=== PATIENT | male | born 1950 | race Hispanic/Latino ===

== ENCOUNTER 2017-01-27 09:41 | Inpatient (IN) | payer MEDICARE, MEDICAID ==
[2017-01-27] MEDS ORDERED: Bacitracin 500 Units/gm Oint Foilpak UD TOP ONE (10:57)
[2017-01-27] MEDS ORDERED: Sodium Chloride 0.9% 1,000 ML IV STA (10:57)
--- NOTE | 2017-01-27 11:06 | ED PDOC ---
Arrival/HPI - General Historian: Patient - History of Present Illness Time/Duration: < week Symptom Onset: Sudden Symptom Course: Unchanged Quality: Burning Severity Level: 9 Activities at Onset: Rest Context: Home <Mercy Crow - Last Filed: 01/27/17 13:12> <Boaz Martins - Last Filed: 01/27/17 14:15> - General Chief Complaint: Weakness/Neurological Deficit Time Seen by Provider: 01/27/17 10:06 - History of Present Illness Narrative History of Present Illness (Text): 01/27/17 11:17 This is a 66Y M with PMH of HTN, possible cirrhosis and kidney stones who came to ED for AMS x 4 days. Patient was found on the floor by neighbors covered in feces and maggots. Patient reports that he has been having diarrhea the past week without blood or dark in color. It is very watery and does not wake him up in the night. He reports that he was dehydrated and woke up on the floor Tuesday morning. He was having people change the carpet in his home and woke up to the furniture all moved to a corner. He was unable to get up and yelled for help and claimed no one came to help him. Due to his diarrhea and inability to get up he was covered in feces and unable to take his underwear off. He was later found by neighbors this morning. The patient does not know how he ended up on the floor. He denies drug or alcohol use, seizure like activity, numbness/ tingling, facial droop, slurred speech, trauma, sick contacts or recent travel. Patient denies CP, SOB, n/v, numbness/tingling, fever, chills. He does admit to urinary frequency and felt as though he was getting a stone. He is a poor historian and is unable to describe his complete medical history. He does not know all the medications he takes. He lives alone. His PMD is Dr. Glez who is partners with Dr. Jon. (Mercy Crow) Past Medical History - Provider Review Nursing Documentation Reviewed: Yes - Travel History Have you recently traveled outside [place] w/in the past 3 mons?: No - Cardiac Hx Hypertension: Yes - Renal Hx Kidney Stones: Yes - Hematological/Oncological Hx Cirrhosis: Yes - Psychiatric Hx Substance Use: Yes (alcoholism quit >3yrs ago) - Past Surgical History Past Surgical History: No Previous <Mercy Crow - Last Filed: 01/27/17 13:12> Family/Social History - Physician Review Nursing Documentation Reviewed: Yes Family/Social History: Unknown Family HX Smoking Status: Former Smoker Hx Alcohol Use: Yes (used to be an alcoholic- quit ) Hx Substance Use: No <Mercy Crow - Last Filed: 01/27/17 13:12> Allergies/Home Meds <Mercy Crow - Last Filed: 01/27/17 13:12> <Boaz Martins - Last Filed: 01/27/17 14:15> Allergies/Adverse Reactions: Allergies No Known Allergies Allergy (Verified 01/27/17 10:42) Home Medications: Home Meds Medication Instructions Recorded Confirmed Unobtainable 01/27/17 01/27/17 Review of Systems - Physician Review All systems were reviewed & negative as marked: Yes - Review of Systems Constitutional: Fatigue Eyes: Normal. absent: Vision Changes ENT: Normal. absent: Hearing Changes Respiratory: Normal. absent: SOB, Cough, Sputum Cardiovascular: Normal. absent: Chest Pain, Palpitations, Edema Gastrointestinal: Diarrhea. absent: Nausea, Vomiting Genitourinary Male: Normal, Frequency Musculoskeletal: Normal. absent: Arthralgias, Back Pain, Neck Pain, Myalgias Skin: Rash, Skin Lesions Neurological: Normal. absent: Headache, Dizziness Endocrine: Normal. absent: Diaphoresis, Polyuria Hemo/Lymphatic: Normal. absent: Adenopathy Psychiatric: Normal. absent: Anxiety, Depression <Mercy Crow - Last Filed: 01/27/17 13:12> Physical Exam Vital Signs Reviewed: Yes Temperature: Afebrile Blood Pressure: Hypotensive Pulse: Tachycardic Respiratory Rate: Normal Appearance: Positive for: Non-Toxic, Comfortable, Unkept Pain Distress: None Mental Status: Positive for: Alert and Oriented X 3 - Systems Exam Head: Present: Normocephalic, Abrasion Pupils: Present: PERRL Extroacular Muscles: Present: EOMI Conjunctiva: Present: Normal Mouth: Present: Dry Neck: Present: Normal Range of Motion Respiratory/Chest: Present: Clear to Auscultation, Good Air Exchange. No: Respiratory Distress, Accessory Muscle Use Cardiovascular: Present: Regular Rate and Rhythm, Normal S1, S2. No: Murmurs Abdomen: Present: Tenderness, Normal Bowel Sounds. No: Distention, Peritoneal Signs, Rebound, Guarding, Hernias Genitourinary Male: Present: Normal External Genitalia, Lesions (bleeding and lesions ) Upper Extremity: Present: Normal Inspection. No: Cyanosis, Edema Lower Extremity: Present: Edema (trace). No: Normal Inspection Neurological: Present: GCS=15, CN II-XII Intact, Speech Normal, Motor Func Grossly Intact, Normal Sensory Function Skin: Present: Warm, Rashes, Erythematous, Abrasion, Other (multiple bug bites throughout body. Multliple wound on bilateral legs, toes and buttock, chest, groin region) Psychiatric: Present: Alert, Oriented x 3, Normal Concentration, Other ( confused at times ). No: Agitated, Depressed Mood <Mercy Crow - Last Filed: 01/27/17 13:12> Vital Signs Reviewed: Yes <Boaz Martins - Last Filed: 01/27/17 14:15> Vital Signs Temp Pulse Resp BP Pulse Ox 01/27/17 11:06 103 H 127/79 100 01/27/17 10:38 98.4 F 98 H 16 78/33 L 99 Medical Decision Making Re-evaluation Time: 12:00 Reassessment Condition: Improving,but remains with symptoms <Mercy Crow - Last Filed: 01/27/17 13:12> <Boaz Martins - Last Filed: 01/27/17 14:15> ED Course and Treatment: 01/27/17 11:25 Impression: This is a 66Y M with PMH of HTN, possible cirrhosis and kidney stones who came to ED for AMS x 4 days. Differential Diagnosis included but are not limited to: rhabdomyolysis vs. CVA vs. dehydration vs. cellulitis Plan: -- Head CT -- CT Abd/pelvis -- NS bolus -- Cleocin, Bacitracin -- EKG -- CBC, CMP, drug tox, alcohol level, CK, cardiac iso, ammonia level -- Reassess and disposition 01/27/17 11:27 EKG: Ordered, reviewed, and independently interpreted the EKG. Rate : 107 BPM Rhythm : Sinus tachycardia Interpretation : No ST-segment elevations or depressions, no T-wave inversions, normal intervals. Comparison : No previous comparison 01/27/17 12:30 Progress Note: Patient reports he has improved and feels more hydrated. Labs were reviewed. CMP showed Hypernatremia, elevated CK and increased BUN and Cr. PMD, Dr. Jon called. Awaiting call back. 01/27/17 12:[address] Jon who accepted the patient into his service. He requests the patient be placed on med/surg. Discussed results and plan to admit with patient who expresses understanding. All questions answered and there is agreement with the plan. CT HEAD WITHOUT CONTRAST. COMPARISON: None available. FINDINGS: HEMORRHAGE: No intracranial hemorrhage. BRAIN: No mass effect or edema. Mild chronic microvascular changes and mild atrophy are seen. No acute intracranial findings VENTRICLES: Unremarkable. No hydrocephalus. CALVARIUM: Unremarkable. PARANASAL SINUSES: Unremarkable as visualized. No significant inflammatory changes. MASTOID AIR CELLS: Unremarkable as visualized. No inflammatory changes. OTHER FINDINGS: None. IMPRESSION: No acute intracranial findings CT Abdomen and Pelvis without intravenous contrast COMPARISON: None. FINDINGS: LOWER THORAX: Unremarkable. LIVER: There is an irregular contour of the liver and mild liver atrophy consistent with cirrhosis. The liver measures 22.5 cm transversely. There is evidence of portal hypertension. There is some associated enlargement of the umbilical vein. Multiple splenic varices are seen. GALLBLADDER AND BILE DUCTS: Unremarkable. PANCREAS: Unremarkable. No gross lesion or ductal dilatation. SPLEEN: Splenic varices. The spleen is otherwise normal in size ADRENALS: Unremarkable. No mass. KIDNEYS AND URETERS: Unremarkable. No hydronephrosis. No solid mass. VASCULATURE: Unremarkable. No aortic aneurysm. BOWEL: Unremarkable. No obstruction. No gross mural thickening. APPENDIX: Unremarkable. Normal appendix. PERITONEUM: Unremarkable. No free fluid. No free air. LYMPH NODES: Unremarkable. No enlarged lymph nodes. BLADDER: Unremarkable. REPRODUCTIVE: Unremarkable. BONES: No acute fracture. OTHER FINDINGS: None. IMPRESSION: There is an irregular contour of the liver and mild liver atrophy consistent with cirrhosis. There is evidence of portal hypertension. There is some associated enlargement of the umbilical vein. Multiple splenic varices are seen. 01/27/17 13:07 (Mercy Crow) 01/27/17 13:11 Patient Seen With Resident: In agreement with resident note which contains more details about the patient. Patient was seen and evaluated with resident. Came up with plan and treatment together. 66 y/o M p/w fall at home, abrasions to groin area. (Imm,Boaz Larsen) - Lab Interpretations Lab Results: 01/27/17 11:30 01/27/17 11:30 Lab Results 01/27/17 12:00: Ammonia 26 01/27/17 11:30: Alcohol, Quantitative < 10 01/27/17 11:30: Sodium 172 H*, Potassium 4.5, Chloride 126 H, Carbon Dioxide 17 L, Anion Gap 34 H, BUN 171 H*, Creatinine 4.0 H, Est GFR ( Amer) 18, Est GFR (Non-Af Amer) 15, Random Glucose 134 H, Calcium 9.6, Total Bilirubin 4.8 H, AST 148 H, ALT 92 H, Alkaline Phosphatase 86, Lactate Dehydrogenase 1172 H, Total Creatine Kinase 657 H, CK-MB (CK-2) 10.7 H, CK-MB (CK-2) % 1.6 L, Troponin I 0.25 H*, Total Protein 7.4, Albumin 4.0, Globulin 3.4, Albumin/ Globulin Ratio 1.2 01/27/17 11:30: WBC 6.4, RBC 4.89, Hgb 16.5, Hct 49.3, MCV 100.8, MCH 33.7, MCHC 33.5, RDW 16.0 H, Plt Count 85 L, MPV 10.8, Gran % 73.1 H, Lymph % (Auto) 9.5 L, Twiggs % (Auto) 15.3 H, Eos % (Auto) 1.6, Baso % (Auto) 0.5, Gran # 4.69, Lymph # 0.6 L, Twiggs # 1.0 H, Eos # 0.1, Baso # 0.03 - RAD Interpretation Radiology Orders: 01/27/17 10:57 HEAD W/O CONTRAST [CT] Stat 01/27/17 11:07 ABD & PELVIS W/O PO OR IV CONT [CT] Stat - Medication Orders Current Medication Orders: Dextrose (Dextrose 5% In Water 1000 Ml) 1,000 mls @ 150 mls/hr IV .Q6H40M KELLEY Last Admin: 01/27/17 13:17 Dose: 150 mls/hr Discontinued Medications Bacitracin (Bacitracin) 1 ea TOP ONCE ONE Stop: 01/27/17 10:58 Last Admin: 01/27/17 11:27 Dose: 1 ea Clindamycin Phosphate 900 mg/ (Sodium Chloride) 106 mls @ 106 mls/hr IVPB STAT STA PRN Reason: Protocol Stop: 01/27/17 11:56 Last Admin: 01/27/17 11:27 Dose: 106 mls/hr Sodium Chloride (Sodium Chloride 0.9%) 1,000 mls @ 999 mls/hr IV .Q1H1M STA Stop: 01/27/17 11:57 Last Admin: 01/27/17 11:17 Dose: 999 mls/hr <Mercy Crow - Last Filed: 01/27/17 13:12> - Scribe Statement The provider has reviewed the documentation as recorded by the Scribe <Boaz Martins - Last Filed: 01/27/17 14:15> - Scribe Statement Gertrudis Gomez Provider Scribe Attestation: All medical record entries made by the Scribe were at my direction and personally dictated by me. I have reviewed the chart and agree that the record accurately reflects my personal performance of the history, physical exam, medical decision making, and the department course for this patient. I have also personally directed, reviewed, and agree with the discharge instructions and disposition. (Boaz Martins) Disposition/Present on Arrival - Present on Arrival Any Indicators Present on Arrival: No History of DVT/PE: No History of Uncontrolled Diabetes: No Urinary Catheter: No History of Decub. Ulcer: No History Surgical Site Infection Following: None - Disposition Have Diagnosis and Disposition been Completed?: Yes Disposition Time: 12:55 Patient Plan: Admission <Mercy Crow - Last Filed: 01/27/17 13:12> <Boaz Martins - Last Filed: 01/27/17 14:15> - Disposition Diagnosis: Dehydration Disposition: HOSPITALIZED Patient Problems: Current Active Problems Problem Status Onset Dehydration Acute Condition: STABLE
[2017-01-27 11:49] LABS: BASO # 0.03 K/mm3 (0.0-2.0); BASO % 0.5 % (0.0-3.0); EOS # 0.1 (0.0-0.7); EOS % 1.6 % (1.5-5.0); GRAN # 4.69 (1.4-6.5); GRAN % 73.1 % (50.0-68.0); HEMATOCRIT 49.3 % (42.0-52.0); LYMPH # 0.6 (1.2-3.4); LYMPH % 9.5 % (22.0-35.0); MEAN CELL VOLUME 100.8 fl (80.0-105.0); MEAN CORPUSCULAR HEMOGLOBIN 33.7 pg (25.0-35.0); MEAN CORPUSCULAR HGB CONC 33.5 g/dl (31.0-37.0); MEAN PLATELET VOLUME 10.8 fl (7.0-11.0); MONO % 15.3 % (1.0-6.0); WHITE BLOOD COUNT 6.4 10^3/ul (4.5-11.0)
[2017-01-27 12:08] LABS: ALB/GLOB RATIO 1.2 (1.1-1.8); BILIRUBIN,TOTAL 4.8 mg/dL (0.2-1.3); CALCIUM 9.6 mg/dL (8.4-10.5); TOTAL PROTEIN 7.4 g/dL (5.8-8.3)
[2017-01-27 12:18] LABS: POTASSIUM 4.5 mmol/L (3.6-5.0)
--- NOTE | 2017-01-27 12:19 | CT ---
PROCEDURE: CT HEAD WITHOUT CONTRAST. HISTORY: ams, fall COMPARISON: None available. TECHNIQUE: Axial computed tomography images were obtained through the head/brain without intravenous contrast. Radiation dose: Total exam DLP = 903 mGy-cm. This CT exam was performed using one or more of the following dose reduction techniques: Automated exposure control, adjustment of the mA and/or kV according to patient size, and/or use of iterative reconstruction technique. FINDINGS: HEMORRHAGE: No intracranial hemorrhage. BRAIN: No mass effect or edema. Mild chronic microvascular changes and mild atrophy are seen. No acute intracranial findings VENTRICLES: Unremarkable. No hydrocephalus. CALVARIUM: Unremarkable. PARANASAL SINUSES: Unremarkable as visualized. No significant inflammatory changes. MASTOID AIR CELLS: Unremarkable as visualized. No inflammatory changes. OTHER FINDINGS: None. IMPRESSION: No acute intracranial findings
[2017-01-27 12:22] LABS: TROPONIN I 0.25 ng/mL
--- NOTE | 2017-01-27 12:28 | CT ---
PROCEDURE: CT Abdomen and Pelvis without intravenous contrast HISTORY: diarrhea, kidney stone, hx of cirrhosis? COMPARISON: None. TECHNIQUE: Without contrast.. Contrast Dose: Radiation dose: Total exam DLP = 1043 mGy-cm. This CT exam was performed using one or more of the following dose reduction techniques: Automated exposure control, adjustment of the mA and/or kV according to patient size, and/or use of iterative reconstruction technique. FINDINGS: LOWER THORAX: Unremarkable. LIVER: There is an irregular contour of the liver and mild liver atrophy consistent with cirrhosis. The liver measures 22.5 cm transversely. There is evidence of portal hypertension. There is some associated enlargement of the umbilical vein. Multiple splenic varices are seen. GALLBLADDER AND BILE DUCTS: Unremarkable. PANCREAS: Unremarkable. No gross lesion or ductal dilatation. SPLEEN: Splenic varices. The spleen is otherwise normal in size ADRENALS: Unremarkable. No mass. KIDNEYS AND URETERS: Unremarkable. No hydronephrosis. No solid mass. VASCULATURE: Unremarkable. No aortic aneurysm. BOWEL: Unremarkable. No obstruction. No gross mural thickening. APPENDIX: Unremarkable. Normal appendix. PERITONEUM: Unremarkable. No free fluid. No free air. LYMPH NODES: Unremarkable. No enlarged lymph nodes. BLADDER: Unremarkable. REPRODUCTIVE: Unremarkable. BONES: No acute fracture. OTHER FINDINGS: None. IMPRESSION: There is an irregular contour of the liver and mild liver atrophy consistent with cirrhosis. There is evidence of portal hypertension. There is some associated enlargement of the umbilical vein. Multiple splenic varices are seen.
[2017-01-27] MEDS: Morphine 4 mg/ml ISec IVP PRN (16:18)
[2017-01-27] MEDS ORDERED: Permethrin 5% Cream(60 gm) TOP ONE ×2 (16:46→18:16)
[2017-01-27 17:22] VITALS: BMI 30.2
[2017-01-27 17:26] LABS: URINE BILIRUBIN SMALL (NEGATIVE); URINE BLOOD NEGATIVE (NEGATIVE); URINE GLUCOSE (UA) NEGATIVE (NEGATIVE); URINE KETONE TRACE mg/dL (NEGATIVE); URINE LEUKOCYTE ESTERASE MODERATE Leu/uL (NEGATIVE); URINE PROTEIN TRACE mg/dL (<30 mg/dL)
[2017-01-27 17:38] LABS: URINE COLOR DARK YELLOW (YELLOW)
[2017-01-27 17:39] LABS: URINE APPEARANCE CLOUDY (CLEAR)
[2017-01-27 17:40] LABS: URINE BACTERIA MANY (NEG); URINE EPITHELIAL CELLS 0 - 2 /hpf (0-5); URINE RBC 0 - 2 /hpf (0-2)
--- NOTE | 2017-01-27 17:40 | CP.PCM.CON ---
History of Present Illness - History of Present Illness History of Present Illness: SURGERY CONSULT FOR DR. VALLE 66M presents for altered mental status s/p fall 3 days ago. He does not remember the fall or how he got to the hospital. Patient states he lives alone at home and sometimes finds himself on the floor with missing items in his apartment. He states there are a lot of glass shards on his carpet and when he finds himself on the floor, he has to drag himself to the bathroom if he is able to conjure up the energy. He states he has not been able to eat for 5 days because he hasn't had enough energy to get up from the floor. Came to hospital via ambulance but does not know who called ambulance. Surgery consulted for wound care. Patient states wound developed from crawling all over glass floor. PMH: cirrhosis, hypertension PSH: finger surgery All: NKDA Social: history of alcohol abuse, denies tobacco and illicit drugs Past Patient History - Past Social History Smoking Status: Former Smoker - CARDIAC Hx Hypertension: Yes Hx Peripheral Edema: Yes (+3 pitting edema) - RENAL Hx Kidney Stones: Yes - HEMATOLOGICAL/ONCOLOGICAL Hx Cirrhosis: Yes - INTEGUMENTARY Other/Comment: multiple purple skin discolorations r arm,ble discolored, left restoration abrasion,necrotic uneven wound mid alfa surrounded by red skin, abd severely red and excoriated, ulcerated, greenish slough over excoriated skin across abd, red rash red excoriated skin across abd, to b/l groin and upper thighs, sacrum and buttock ulcerated and bright red, necrotic 6 cm x 4cm necrotic wound right knee, red wound 2cm x 2cm right knee, necrotic wounds to both feet, 2.5cm x 1cm necrotic wound top of ft between 1st and 2nd toe, necrotic wound 3cm x 2.5cm yellow slough necrosis and deep red color uneven below breat toe, left foot 1.5cm x 1cm necrotic wound top of ft at 3rd toe and necrotic wound top of ft at 2nd toe 1cm x 1cm, multiple areas of red raw excoriated skin over body and multiple, red raised rash over multiple body sites - MUSCULOSKELETAL/RHEUMATOLOGICAL Hx Falls: Yes (found on floor) Hx Unsteady Gait: Yes (cane) - GENITOURINARY/GYNECOLOGICAL Hx Genitourinary Disorders: Yes (frequency) - PSYCHIATRIC Hx Anxiety: Yes Hx Depression: Yes Hx Substance Use: No - SURGICAL HISTORY Hx Surgeries: Yes (left hand 3rd finger tendon repair as a child) Meds Allergies/Adverse Reactions: Allergies Allergy/AdvReac Type Severity Reaction Status Date / Time No Known Allergies Allergy Verified 01/27/17 10:42 - Medications Medications: Current Medications Clonazepam (Klonopin) 0.5 mg PO BID KELLEY PRN Reason: Protocol Dextrose (Dextrose 5% In Water 1000 Ml) 1,000 mls @ 150 mls/hr IV .Q6H40M KELLEY Last Admin: 01/27/17 13:17 Dose: 150 mls/hr Piperacillin Sod/Tazobactam Sod (Zosyn 2.25 Gm In 0.9% 100 Ml) 2.25 gm in 100 mls @ 100 mls/hr IVPB Q8 KELLEY PRN Reason: Protocol Stop: 02/05/17 16:25 Metronidazole (Flagyl) 500 mg PO Q8 KELLEY PRN Reason: Protocol Last Admin: 01/27/17 16:19 Dose: 500 mg Morphine Sulfate (Morphine) 4 mg IVP Q4H PRN PRN Reason: Pain, severe (8-10) Last Admin: 01/27/17 16:18 Dose: 4 mg Physical Exam - Constitutional Appears: Unkempt - Eye Exam Eye Exam: EOMI, PERRL - ENT Exam ENT Exam: Mucous Membranes Dry - Respiratory Exam Respiratory Exam: Clear to Auscultation Bilateral, NORMAL BREATHING PATTERN - Cardiovascular Exam Cardiovascular Exam: REGULAR RHYTHM, +S1, +S2 Additional comments: 6x6 necrotic region inferior to left breast - GI/Abdominal Exam GI & Abdominal Exam: Soft, Tenderness (from raw wounds on lower abdomen). absent: Distended, Firm, Guarding, Rebound, Rigid - Extremities Exam Extremities exam: Negative for: pedal edema, tenderness Additional comments: 2 3x3 necrotic regions on right foot 1 5x5 region surrounded by raw wounds in right medial knee region 2 necrotic regions on left lower extremity raw bloody wounds on penis, scrotum, bilateral inner thighs, suprapubic region, and lower abdomen - Neurological Exam Neurological exam: Alert - Psychiatric Exam Psychiatric exam: Anxious - Skin Skin Exam: Warm Results - Vital Signs Recent Vital Signs: Last Vital Signs Temp 98.4 F 01/27/17 16:45 Pulse 103 H 01/27/17 16:45 Resp 18 01/27/17 16:45 BP 127/79 01/27/17 16:45 Pulse Ox 98 01/27/17 14:54 - Labs Result Diagrams: 01/27/17 11:30 01/27/17 11:30 Assessment & Plan - Assessment and Plan (Free Text) Assessment: 66M with history of alcohol liver cirrhosis presents with multiple wounds on chest, groin, lower extremity regions. Plan: -Santyl to necrotic regions with 4x4 tape -Xeroform, 4x4 for groin region -reassess wounds in AM further recs discuss w/ Dr. Arjun Perez, PGY2
[2017-01-27] MEDS: Piperacillin/Tazobact 2.25gm 2.25 GM/100 ML BAG IVPB SCH ×2 (18:10→22:56)
[2017-01-27] MEDS: Collagenase 250 Units/gm Ointment(30 gm) TOP SCH (18:38)
--- NOTE | 2017-01-28 01:00 | CON ---
DATE: 01/27/2017 LOCATION: The patient was seen in room 578, bed 1. CHIEF COMPLAINT: Weakness times several days. HISTORY OF PRESENT ILLNESS: This is a 66-year-old male with a history of alcohol abuse, history of portal hypertension, splenic varices, cirrhosis, kidney stones, and systemic hypertension who was admitted from the emergency room, change in mental status of 4 days' duration. The patient was found on the floor by a neighbor. The patient was covered with feces and maggots and he has been having diarrhea and at this point, the patient is awake, also slow to respond. The patient states he has no pain, no chest pain, no abdominal pain, no headaches or blurred vision, and no dysuria or frequency. He has had no fevers or chills. PAST MEDICAL HISTORY: Significant for alcoholism, portal hypertension, cirrhosis, splenic varices, kidney stones, and hypertension. PAST SURGICAL HISTORY: Noncontributory. ALLERGIES: THE PATIENT HAS NO KNOWN ALLERGIES. MEDICATIONS: Medications at home include the patient to have Zoloft, Aldactone, Ambien, and metoprolol. PHYSICAL EXAMINATION: VITAL SIGNS: The patient is in bed with a temperature of 98, blood pressure is 78/33, heart rate of 103, respiratory rate of 17, and the patient is saturating 99% on room air. HEENT: Unremarkable. NECK: Supple. LUNGS: Decreased breath sounds. HEART: Normal S1 and S2. ABDOMEN: Soft. It is obvious that the patient had been on his abdomen for several days. He has ecchymotic lesions and he has got a right leg erythema and cellulitis. He has necrotic area in the center of his abdomen and his chest where he has been lying on and he has had several necrotic lesions on his legs and his feet and significant skin breakdown. LABORATORY DATA: Reveals a white count of 6.4, MCV is 100.8, platelets of 85, and hemoglobin of 16.5. Sodium is 172, potassium is 4.5, BUN 171, and creatinine is 4. Bilirubin is elevated at 4.8, AST is 148, ALT is 92. LDH is 1172. Toxicology, his alcohol level is less than 10. Microbiology is pending. The patient had a CAT scan of the abdomen and pelvis, which revealed an irregular contour of the liver consistent with cirrhosis. There is evidence of portal hypertension. There is some enlargement of umbilical vein, multiple splenic varices. The patient also had a CAT scan of the head, which shows no acute findings. ASSESSMENT AND PLAN: This is a 66-year-old male with alcoholism, portal hypertension, cirrhosis, splenic varices, kidney stones, systemic hypertension who has a blood pressure of 78/30, heart rate of 103, and erythema of the right leg. 1. Right leg cellulitis with dehydration and with acute kidney injury with a BUN of 171, creatinine of 4.0, and elevated glucose. The patient also has elevated troponin consistent with non-ST elevation myocardial infarction with nonspecific findings on EKG. 2. Rhabdomyolysis and hypotension. We will treat the patient with Zosyn at this time and we will order blood cultures, urine cultures, and skin cultures, stool for Clostridium difficile, stool cultures, HIV, RPR, hepatitis profile, and hemoglobin A1c. I will make further recommendations upon the availability of initial results. We will follow closely with you. Nithin Cruz MD
[2017-01-28] MEDS: Piperacillin/Tazobact 2.25gm 2.25 GM/100 ML BAG IVPB SCH ×3 (05:59→22:43)
[2017-01-28 07:01] LABS: HEMATOCRIT 41.6 % (42.0-52.0); MEAN CELL VOLUME 100.7 fl (80.0-105.0); MEAN CORPUSCULAR HEMOGLOBIN 33.2 pg (25.0-35.0); MEAN CORPUSCULAR HGB CONC 32.9 g/dl (31.0-37.0); MEAN PLATELET VOLUME 10.8 fl (7.0-11.0); RED CELL DISTRIBUTION WIDTH 15.9 % (11.5-14.5)
[2017-01-28 07:27] LABS: BILIRUBIN,TOTAL 3.7 mg/dL (0.2-1.3); CALCIUM 8.2 mg/dL (8.4-10.5); MAGNESIUM 2.8 mg/dL (1.7-2.2); PHOSPHOROUS 5.8 mg/dL (2.5-4.5); POTASSIUM 3.6 mmol/L (3.6-5.0)
[2017-01-28] MEDS: Morphine 4 mg/ml ISec IVP PRN (10:17)
--- NOTE | 2017-01-28 10:24 | CP.PCM.PN ---
Subjective - Date & Time of Evaluation Date of Evaluation: 01/28/17 Time of Evaluation: 10:21 - Subjective Subjective: General Surgery Progress note for Dr. Díaz Objective - Vital Signs/Intake and Output Vital Signs (last 24 hours): Temp Pulse Resp BP Pulse Ox 97.3 F L 75 20 132/84 97 01/28/17 07:54 01/28/17 07:54 01/28/17 07:54 01/28/17 07:54 01/28/17 07:54 Intake and Output: 01/28/17 01/28/17 06:59 18:59 Intake Total 3490 Output Total 725 Balance 2765 - Medications Medications: Current Medications Clonazepam (Klonopin) 0.5 mg PO BID KELLEY PRN Reason: Protocol Last Admin: 01/28/17 09:45 Dose: 0.5 mg Collagenase (Santyl) 1 gm TOP DAILY KELLEY Last Admin: 01/27/17 18:38 Dose: Not Given Piperacillin Sod/Tazobactam Sod (Zosyn 2.25 Gm In 0.9% 100 Ml) 2.25 gm in 100 mls @ 100 mls/hr IVPB Q8 KELLEY PRN Reason: Protocol Stop: 02/05/17 16:25 Last Admin: 01/28/17 05:59 Dose: 100 mls/hr Dextrose (Dextrose 5% In Water 1000 Ml) 1,000 mls @ 100 mls/hr IV .Q10H KELLEY Metronidazole (Flagyl) 500 mg PO Q8 KELLEY PRN Reason: Protocol Last Admin: 01/28/17 05:58 Dose: 500 mg Morphine Sulfate (Morphine) 4 mg IVP Q4H PRN PRN Reason: Pain, severe (8-10) Last Admin: 01/28/17 10:17 Dose: 4 mg - Labs Labs: 01/28/17 06:30 01/28/17 06:30 - Constitutional Appears: Unkempt - Head Exam Head Exam: absent: ATRAUMATIC Additional comments: wound on left scalp - Eye Exam Eye Exam: EOMI - ENT Exam ENT Exam: Mucous Membranes Moist. absent: Mucous Membranes Dry - Neck Exam Neck Exam: Full ROM - Respiratory Exam Respiratory Exam: NORMAL BREATHING PATTERN. absent: Accessory Muscle Use, Respiratory Distress - Cardiovascular Exam Cardiovascular Exam: REGULAR RHYTHM. absent: Bradycardia, Tachycardia - GI/Abdominal Exam GI & Abdominal Exam: Soft, Tenderness Additional comments: left lower abdomen wound 2x2cm at the fold - Extremities Exam Extremities Exam: Full ROM, Normal Inspection. absent: Calf Tenderness, Pedal Edema - Neurological Exam Neurological Exam: Alert, Awake - Psychiatric Exam Psychiatric exam: Normal Affect, Normal Mood - Skin Skin Exam: Abrasion, Warm. absent: Intact Additional comments: 2 3x3 necrotic regions on right foot, right 1st digit. and on two digits of left foot 1 5x5 region surrounded by raw wounds in right medial knee region 2 necrotic regions on left lower extremity 1 necrotic region on left medial chest raw bloody wounds on penis, scrotum, bilateral inner thighs, suprapubic region, and lower abdomen Assessment and Plan - Assessment and Plan (Free Text) Assessment: 66M with history of alcohol liver cirrhosis presents with multiple wounds on chest, groin, lower extremity regions. Plan: -consider scorring with Santyl to necrotic regions with 4x4 tape -Xeroform, 4x4 for groin region -reassess wounds in AM d/w Dr. Arjun Doss, DO PGY1
[2017-01-28] MEDS: Collagenase 250 Units/gm Ointment(30 gm) TOP SCH (11:00)
--- NOTE | 2017-01-28 11:31 | PN ---
DATE: 01/28/2017 SUBJECTIVE: The patient is in bed, seen early this morning. No fever. No chills. Much better this morning. PHYSICAL EXAMINATION: VITAL SIGNS: Temperature is 98, blood pressure is 120/70, respiratory rate of 20, and heart rate of 103. HEENT: Unremarkable. NECK: Supple. LUNGS: Decreased breath sounds. HEART: Normal S1 and S2. ABDOMEN: Soft and nontender. No rebound. No guarding. LABORATORY DATA: White count is 6, hemoglobin is down to 13, and platelets of 47. Chemistries reveals a creatinine is down to 3.9. LFTs are noted and CPK is noted and urinalysis; 0-2 RBCs, 2-5 WBCs, and microbiology pending. ASSESSMENT AND PLAN: A 66-year-old white male with history of alcohol abuse, portal hypertension, splenic varices, cirrhosis, kidney stones, and systemic hypertension, , found unresponsive, but now has right leg cellulitis and dehydration, acute kidney injury, non-ST elevation myocardial infarction, and rhabdomyolysis. The patient hypotension, currently on Zosyn. Awaiting for culture results. Case discussed with Dr. Marcus. Nithin Cruz MD
--- NOTE | 2017-01-28 12:22 | CP.PCM.PCO ---
Physician Communication Note - Physician Communication Note Physician Communication Note: patient stated his last drink was tuesday, patient is a poor historian
--- NOTE | 2017-01-28 19:56 | CP.PCM.CON ---
<Danielle Gant - Last Filed: 01/28/17 19:54> History of Present Illness - History of Present Illness History of Present Illness: Seen and examined at the bedside this afternoon, the chart was reviewed. Request for GI consult is for diarrhea. HPI: This is a 66-year-old male with a past medical history of hypertension, liver cirrhosis was found on the floor by his neighbors covered in feces and magnets. The patient is currently lethargic, in and out of sleep but arousable. Currently he is a poor historian. History obtained from medical chart, medical team/nursing staff.The patient reportedly has been having diarrhea for about a week with no reports of any bleeding. The patient denied any recent use of antibiotics. The patient is not sure how he ended up on the floor. The patient denies EtOH but has history of alcohol abuse, denies any drug use. Patient reported having colonoscopy, found to have polyps, not sure how long ago that was done here in [place], denies endoscopy. the patient had a CT scan of abdomen and pelvis on admission without contrast and this reported irregular contour of the liver and mild atrophy consistent with cirrhosis. There is evidence of portal hypertension and enlargement of the umbilical vein, and multiple splenic varices are seen. He also had a head CT on admission and that was negative for acute intracranial findings. As per nursing staff, patient has had no episodes of diarrhea. Past medical history: hypertension, renal stones, liver cirrhosis Past surgical history: None Family history: Unknown Allergies: No known drug allergies Social history: Former smoker, history of EtOH, currently patient denies any recent intake, no history of substance abuse Medications: Reviewed as per MAR ROS: Systems reviewed with positive finding see HPI. Past Patient History - Past Social History Smoking Status: Former Smoker - CARDIAC Hx Hypertension: Yes Hx Peripheral Edema: Yes (+3 pitting edema) - RENAL Hx Kidney Stones: Yes - HEMATOLOGICAL/ONCOLOGICAL Hx Cirrhosis: Yes - INTEGUMENTARY Other/Comment: multiple purple skin discolorations r arm,ble discolored, left adventist abrasion,necrotic uneven wound mid alfa surrounded by red skin, abd severely red and excoriated, ulcerated, greenish slough over excoriated skin across abd, red rash red excoriated skin across abd, to b/l groin and upper thighs, sacrum and buttock ulcerated and bright red, necrotic 6 cm x 4cm necrotic wound right knee, red wound 2cm x 2cm right knee, necrotic wounds to both feet, 2.5cm x 1cm necrotic wound top of ft between 1st and 2nd toe, necrotic wound 3cm x 2.5cm yellow slough necrosis and deep red color uneven below breat toe, left foot 1.5cm x 1cm necrotic wound top of ft at 3rd toe and necrotic wound top of ft at 2nd toe 1cm x 1cm, multiple areas of red raw excoriated skin over body and multiple, red raised rash over multiple body sites - MUSCULOSKELETAL/RHEUMATOLOGICAL Hx Falls: Yes (found on floor) Hx Unsteady Gait: Yes (cane) - GENITOURINARY/GYNECOLOGICAL Hx Genitourinary Disorders: Yes (frequency) - PSYCHIATRIC Hx Anxiety: Yes Hx Depression: Yes Hx Substance Use: No - SURGICAL HISTORY Hx Surgeries: Yes (left hand 3rd finger tendon repair as a child) Meds Allergies/Adverse Reactions: Allergies Allergy/AdvReac Type Severity Reaction Status Date / Time No Known Allergies Allergy Verified 01/27/17 10:42 - Medications Medications: Current Medications Clonazepam (Klonopin) 0.5 mg PO BID KELLEY PRN Reason: Protocol Last Admin: 01/28/17 09:45 Dose: 0.5 mg Collagenase (Santyl) 1 gm TOP DAILY KELLEY Last Admin: 01/27/17 18:38 Dose: Not Given Piperacillin Sod/Tazobactam Sod (Zosyn 2.25 Gm In 0.9% 100 Ml) 2.25 gm in 100 mls @ 100 mls/hr IVPB Q8 KELLEY PRN Reason: Protocol Stop: 02/05/17 16:25 Last Admin: 01/28/17 05:59 Dose: 100 mls/hr Dextrose (Dextrose 5% In Water 1000 Ml) 1,000 mls @ 100 mls/hr IV .Q10H KELLEY Metronidazole (Flagyl) 500 mg PO Q8 KELLEY PRN Reason: Protocol Last Admin: 01/28/17 05:58 Dose: 500 mg Morphine Sulfate (Morphine) 4 mg IVP Q4H PRN PRN Reason: Pain, severe (8-10) Last Admin: 01/28/17 10:17 Dose: 4 mg Physical Exam - Constitutional Appears: No Acute Distress - Head Exam Head Exam: NORMOCEPHALIC - Eye Exam Eye Exam: Normal appearance. absent: Scleral icterus - ENT Exam ENT Exam: Mucous Membranes Moist - Neck Exam Neck exam: Positive for: Normal Inspection - Respiratory Exam Respiratory Exam: Decreased Breath Sounds, NORMAL BREATHING PATTERN. absent: Respiratory Distress - Cardiovascular Exam Cardiovascular Exam: +S1, +S2 - GI/Abdominal Exam GI & Abdominal Exam: Diminished Bowel Sounds, Soft. absent: Guarding, Rebound, Tenderness - Extremities Exam Extremities exam: Positive for: pedal edema, pedal pulses present - Neurological Exam Neurological exam: Altered (confused at times), Oriented x3 - Skin Skin Exam: Dry, Warm Additional comments: patient has underwent left breast eschar, vice president sales and marketing at bedside tending to patient's wound. Patient has multiple erythematous rashes throughout the body, there is multiple wounds on the legs, toes with some dressings and excoriation in groin area Results - Vital Signs Recent Vital Signs: Last Vital Signs Temp 97.3 F L 01/28/17 07:54 Pulse 75 01/28/17 07:54 Resp 20 01/28/17 07:54 BP 132/84 01/28/17 07:54 Pulse Ox 97 01/28/17 07:54 - Labs Result Diagrams: 01/28/17 06:30 01/28/17 06:30 Labs: Laboratory Results - last 24 hr 01/27/17 01/28/17 01/28/17 17:00 06:30 06:30 WBC RBC Hgb Hct MCV MCH MCHC RDW Plt Count MPV Sodium Potassium Chloride Carbon Dioxide Anion Gap BUN Creatinine Est GFR ( Amer) Est GFR (Non-Af Amer) Random Glucose Hemoglobin A1c 4.9 Calcium Phosphorus Magnesium Total Bilirubin AST ALT Alkaline Phosphatase Total Creatine Kinase CK-MB (CK-2) CK-MB (CK-2) % Total Protein Albumin Globulin Albumin/Globulin Ratio Urine Color Dark yellow Urine Appearance Cloudy Urine pH 6.0 Ur Specific [place] 1.020 Urine Protein Trace H Urine Glucose (UA) Negative Urine Ketones Trace H Urine Blood Negative Urine Nitrate Negative Urine Bilirubin Small H Urine Urobilinogen 2.0 H Ur Leukocyte Esterase Moderate H Urine RBC 0 - 2 Urine WBC 2 - 5 Ur Epithelial Cells 0 - 2 Urine Bacteria Many Hepatitis A IgM Ab Negative Hep Bs Antigen Negative Hep B Core IgM Ab Negative Hepatitis C Antibody Negative 01/28/17 01/28/17 06:30 06:30 WBC 6.0 RBC 4.13 Hgb 13.7 L D Hct 41.6 L MCV 100.7 MCH 33.2 MCHC 32.9 RDW 15.9 H Plt Count 47 L* MPV 10.8 Sodium 157 H* Potassium 3.6 Chloride 118 H Carbon Dioxide 23 Anion Gap 20 BUN 166 H* Creatinine 3.9 H Est GFR ( Amer) 19 Est GFR (Non-Af Amer) 15 Random Glucose 142 H Hemoglobin A1c Calcium 8.2 L Phosphorus 5.8 H Magnesium 2.8 H Total Bilirubin 3.7 H AST 91 H D ALT 78 H Alkaline Phosphatase 66 Total Creatine Kinase 580 H CK-MB (CK-2) 10.6 H CK-MB (CK-2) % 1.8 L Total Protein 6.0 Albumin 3.0 Globulin 3.0 Albumin/Globulin Ratio 1.0 L Urine Color Urine Appearance Urine pH Ur Specific [place] Urine Protein Urine Glucose (UA) Urine Ketones Urine Blood Urine Nitrate Urine Bilirubin Urine Urobilinogen Ur Leukocyte Esterase Urine RBC Urine WBC Ur Epithelial Cells Urine Bacteria Hepatitis A IgM Ab Hep Bs Antigen Hep B Core IgM Ab Hepatitis C Antibody Assessment & Plan - Assessment and Plan (Free Text) Assessment: Assessment: Altered mental status Rhabdomyolysis Dehydration Diarrhea Liver cirrhosis History of EtOH Elevated liver enzymes Acute renal failure Thrombocytopenia Plan: Continue IV fluids for hydration Monitor electrolytes Pending stool for C. difficile, stool culture abdominal Doppler Trend LFTs Continue PPI DVT prophylaxis follow-up blood cultures/urine culture Continue with oral Flagyl, IV antibiotics as per ID as per ID, hematology Thank you for this consult and for allowing us to participate in your patient's care, further recommendations based upon clinical course. Seen and discussed with Dr. Escalera. <Shaniqua Escalera V - Last Filed: 01/28/17 21:08> Meds - Medications Medications: Current Medications Collagenase (Santyl) 1 gm TOP DAILY KELLEY Last Admin: 01/28/17 11:00 Dose: 1 applic Piperacillin Sod/Tazobactam Sod (Zosyn 2.25 Gm In 0.9% 100 Ml) 2.25 gm in 100 mls @ 100 mls/hr IVPB Q8 KELLEY PRN Reason: Protocol Stop: 02/05/17 16:25 Last Admin: 01/28/17 15:10 Dose: 100 mls/hr Dextrose (Dextrose 5% In Water 1000 Ml) 1,000 mls @ 100 mls/hr IV .Q10H KELLEY Metronidazole (Flagyl) 500 mg PO Q8 KELLEY PRN Reason: Protocol Last Admin: 01/28/17 15:08 Dose: 500 mg Morphine Sulfate (Morphine) 4 mg IVP Q4H PRN PRN Reason: Pain, severe (8-10) Last Admin: 01/28/17 10:17 Dose: 4 mg Results - Vital Signs Recent Vital Signs: Last Vital Signs Temp 98 F 01/28/17 16:00 Pulse 90 01/28/17 16:00 Resp 21 01/28/17 16:00 BP 92/59 L 01/28/17 16:00 Pulse Ox 91 L 01/28/17 16:00 - Labs Result Diagrams: 01/28/17 06:30 01/28/17 06:30 Labs: Laboratory Results - last 24 hr 01/28/17 01/28/17 01/28/17 06:30 06:30 06:30 WBC RBC Hgb Hct MCV MCH MCHC RDW Plt Count MPV Sodium Potassium Chloride Carbon Dioxide Anion Gap BUN Creatinine Est GFR ( Amer) Est GFR (Non-Af Amer) Random Glucose Hemoglobin A1c 4.9 Calcium Phosphorus Magnesium Total Bilirubin AST ALT Alkaline Phosphatase Total Creatine Kinase CK-MB (CK-2) CK-MB (CK-2) % Total Protein Albumin Globulin Albumin/Globulin Ratio RPR Nonreactive Hepatitis A IgM Ab Negative Hep Bs Antigen Negative Hep B Core IgM Ab Negative Hepatitis C Antibody Negative 01/28/17 01/28/17 06:30 06:30 WBC 6.0 RBC 4.13 Hgb 13.7 L D Hct 41.6 L MCV 100.7 MCH 33.2 MCHC 32.9 RDW 15.9 H Plt Count 47 L* MPV 10.8 Sodium 157 H* Potassium 3.6 Chloride 118 H Carbon Dioxide 23 Anion Gap 20 BUN 166 H* Creatinine 3.9 H Est GFR ( Amer) 19 Est GFR (Non-Af Amer) 15 Random Glucose 142 H Hemoglobin A1c Calcium 8.2 L Phosphorus 5.8 H Magnesium 2.8 H Total Bilirubin 3.7 H AST 91 H D ALT 78 H Alkaline Phosphatase 66 Total Creatine Kinase 580 H CK-MB (CK-2) 10.6 H CK-MB (CK-2) % 1.8 L Total Protein 6.0 Albumin 3.0 Globulin 3.0 Albumin/Globulin Ratio 1.0 L RPR Hepatitis A IgM Ab Hep Bs Antigen Hep B Core IgM Ab Hepatitis C Antibody Attending/Attestation - Attestation I have personally seen and examined this patient.: Yes I have fully participated in the care of the patient.: Yes I have reviewed all pertinent clinical information: Yes Notes (Text): 01/28/17 21:08 p
--- NOTE | 2017-01-29 03:33 | CON ---
HISTORY OF PRESENT ILLNESS: The patient is a 66-year-old white male who apparently was brought to the emergency room after having, according to the medical records, been found on the floor by neighbors covered with feces and maggots with possible history of cirrhosis, kidney stones. The patient has been having diarrhea over the past week. He is a poor historian. The patient has currently been treated for dramatic change in mental status. He has been treated for right leg cellulitis, dehydration, acute kidney injury, elevated troponin level consistent with non-ST wave CO, rhabdomyolysis, hypotension and urinary tract infection. PAST MEDICAL HISTORY: Mostly also according to the medical records also includes alcoholism, portal hypertension, cirrhosis, esophageal splenic varices, kidney stones and hypertension. PERSONAL HISTORY: I am unable to ascertain from the medical record which reveals no family history. The patient has a some relation who lives in [place], [place], who is unable to get contact with. LABORATORY DATA: White count of 6000, hemoglobin is 13.7, hematocrit 41.6, platelet count 47,000. His chemistries: initially sodium of 172, today was 157; potassium is 3.6; chloride 118; CO2 of 23; anion gap 20; BUN 166; creatinine 3.9; estimated GFR of 15; random glucose 142; calcium 8.2; total bilirubin 3.7; AST 91; ALT 78; alk phos 66; ammonia level is 26. His CPK is 580. Troponin I level 0.25 yesterday. There is no electrocardiogram chart. The patient's urine culture which showed gram-negative rods, but cultures negative less than 24 hours. CURRENT MEDICATIONS: Include morphine 4 mg IV q. 4 hours p.r.n. and his last dose today at 10:17 in the morning. He is on Flagyl 500 mg q. 8 hours, Zosyn IV q. 8 hours, Klonopin 0.5 mg b.i.d. and Santyl. REVIEW OF SYSTEMS: Unable to ascertain following the patient still complains of pain. PHYSICAL EXAMINATION VITAL SIGNS: Blood pressure 92/56, pulse 90, temperature 98, respiratory rate 21 and O2 saturation 91% on room air. IMPRESSION: Severe delirium secondary to multiple medical problems including hepatic impairments, renal impairments, acute probable rhabdomyolysis. He has urinary infections possibly by history of alcohol abuse, portal hypertension, non-ST wave probable myocardial infarction, rhabdomyolysis. The patient's confusion is probably being worsen by IV morphine and clonazepam which I would stop. I stopped the clonazepam. We will consult with nursing staff on management of his behavior. ADDENDUM: The patient's mental status is as follows. He is awake, he is disoriented, unable to have any kind of rational conversation; however, is disoriented to all spheres. Recent memory is clouded. Denies hallucinations either auditory or visual. Denies any depression or suicidal ideation. His judgement and insight are all poor. Simon Quintanilla MD
[2017-01-29] MEDS: Piperacillin/Tazobact 2.25gm 2.25 GM/100 ML BAG IVPB SCH (05:39)
--- NOTE | 2017-01-29 06:13 | HP ---
CHIEF COMPLAINT AND HISTORY OF PRESENT ILLNESS: This is a 66-year-old male who was brought into the hospital, who was having altered mental status. He was found at home by a neighbor and he was found to be lying in his own feces. He was also found to have maggots that were crawling around his body. He is not sure how long he had been on floor. There is a possibility that he had been drinking. He had admitted to having a history of alcoholism. The patient also started complaining of diarrhea for the past week. He denies blood in his diarrhea. He says it is mostly watery. He says that he has been thirsty, but he was not able to get up from the floor to get help. He believes that he has been on the floor for the past 4 days. He denies any headaches. He says he feels tired and thirsty and hungry. He has pain in his muscles, mostly in his lower back. He has no fevers or chills. He denies any drug use. He has no weakness in the arms or the legs that is focal. He does have a history of kidney stones. He is not able to give a good history. He does say that he has seen Dr. Glez for his medical issues. ALLERGIES: NO KNOWN DRUG ALLERGIES. HOME MEDICATIONS: Unknown. SOCIAL HISTORY: He does have a history of drinking, but he states he quit 3 years ago but he says he does drink at times, it is unclear at this point if he does. He denies drug use. PAST MEDICAL HISTORY: Cirrhosis, kidney stones, as above. PHYSICAL EXAMINATION VITAL SIGNS: He has a temperature of 97.5, pulse of 88, blood pressure 126/85, respirations 20 and O2 saturation 99%. Height is 5 feet 9 inches, weight is 205 pounds. BMI 30.3. GENERAL: The patient lying in bed, uncomfortable, and in no acute distress. HEENT: Atraumatic and normocephalic. Anicteric sclerae. Moist mucosa. [place] conjunctivae. No oral lesions. NECK: No JVD, anterior and posterior adenopathy, thyromegaly, or bruits. CARDIOVASCULAR: S1 and S2 regular. No murmur, rubs, or gallop. LUNGS: Clear to auscultation bilaterally. No wheezes, rales, or rhonchi. ABDOMEN: Bowel sounds are positive. Soft, nontender and nondistended. No hepatosplenomegaly. No rebound and no guarding EXTREMITIES: No cyanosis, clubbing, or edema. NEUROLOGIC: No facial asymmetry. Tongue is midline. No uvula deviation. Power is 5/5 upper extremity and lower extremity. Sensation intact in upper extremity and lower extremity. He has a mild intention tremor. PSYCHIATRIC: He is alert, awake, and oriented x1. He has a blunted affect. He has a slurred speech. GENITOURINARY: No CVA tenderness. VASCULAR: 2+ pulses in the carotid pulses and pedal pulses. SKIN: He has multiple abrasions on his body. He has several reddened areas with sloughy skin around his abdomen. On the right knee, there is a 2 x 2 cm wound. There is a necrotic area on both feet that is about 1 to 2 cm between the first and second toe. There is also a necrotic wound that is about 2 x 3 with yellow in necrotic area below the greater toe. There are also other multiple ulcers that are on the feet. There is also an area of wound that is in the right medial knee area. SPINE: Shows normal curvature. LABORATORY DATA: He has a white count of 6.4, hemoglobin is 16.5. He has a chemistry that shows sodium 172, creatinine is 4.0. His LDH is 1172. His CK is 657. Troponin is 0.25. He has a magnesium of 2.8, his phosphorous is 5.8. Repeat sodium is 157, his repeat creatinine is 3.9. His urine shows bilirubin small, leukocyte esterase is moderate. He has alcohol level that is less than 10. Serology shows hep B and C is negative, RPR is negative. His CT of the head shows no acute findings. CT of the abdomen done and pelvis shows that the liver measures 22.5 cm transversely, it is irregular. There is evidence of portal hypertension. There is some associated enlargement of the umbilical vein. Multiple splenic varices are seen. ASSESSMENT: 1. Hypernatremia. 2. Fall. 3. Multiple necrotic lesions on the skin with chronic wounds. 4. Anemia. 5. Cirrhosis. 6. Thrombocytopenia. 7. Probable alcoholism. 8. He has acute kidney injury. PLAN: The patient is admitted to the hospital. He is malnourished. He has had a significant fall. He has a significant diarrhea. He is going to be placed on IV antibiotics. Cultures have been done. He is going to be on Santyl for his wounds. The patient is given IV fluids. I have placed him initially on D5W at 150 an hour and I will decrease the rate up to 100. He will need continued monitoring of his sodium and his creatinine. He is going to get repeat blood work done tomorrow. I will get evaluation by Dr. Díaz, Dr. Escalera, Dr. Quintanilla as well as Dr. Cortés for the low platelets. He is going to get social work evaluation because of his living condition. I did speak to the social media community manager about the case. The patient remains critical. He will stay on the floor hemodynamically, he is stable. He does not have much family according to him. We will continue to follow closely. Link Jon MD
--- NOTE | 2017-01-29 06:29 | CP.PCM.PN ---
Subjective - Date & Time of Evaluation Date of Evaluation: 01/29/17 Time of Evaluation: 06:25 - Subjective Subjective: General surgery progress note for Dr. Elle Lancaster, PGY-1 Pt S & E at bedside. Pt reports continued pain of Left lower abdomen, B/L medial thighs, & scrotum, but improved. Denies N/V/F/C, SOB, CP, ab pain. Objective - Vital Signs/Intake and Output Vital Signs (last 24 hours): Temp Pulse Resp BP Pulse Ox 97.4 F L 76 20 130/80 98 01/29/17 00:21 01/29/17 00:21 01/29/17 00:21 01/29/17 00:21 01/29/17 00:21 Intake and Output: 01/28/17 01/29/17 18:59 06:59 Intake Total 480 2640 Output Total 300 500 Balance 180 2140 - Medications Medications: Current Medications Collagenase (Santyl) 1 gm TOP DAILY [facility] Last Admin: 01/28/17 11:00 Dose: 1 applic Piperacillin Sod/Tazobactam Sod (Zosyn 2.25 Gm In 0.9% 100 Ml) 2.25 gm in 100 mls @ 100 mls/hr IVPB Q8 [facility] PRN Reason: Protocol Stop: 02/05/17 16:25 Last Admin: 01/29/17 05:39 Dose: 100 mls/hr Dextrose (Dextrose 5% In Water 1000 Ml) 1,000 mls @ 100 mls/hr IV .Q10H [facility] Last Admin: 01/29/17 02:18 Dose: 100 mls/hr Metronidazole (Flagyl) 500 mg PO Q8 [facility] PRN Reason: Protocol Last Admin: 01/29/17 05:40 Dose: 500 mg Morphine Sulfate (Morphine) 4 mg IVP Q4H PRN PRN Reason: Pain, severe (8-10) Last Admin: 01/28/17 10:17 Dose: 4 mg - Labs Labs: 01/28/17 06:30 01/28/17 06:30 - Constitutional Appears: Non-toxic, No Acute Distress - Head Exam Head Exam: ATRAUMATIC, NORMAL INSPECTION, NORMOCEPHALIC - Eye Exam Eye Exam: EOMI, Normal appearance - ENT Exam ENT Exam: Mucous Membranes Moist, Normal Exam - Neck Exam Neck Exam: Full ROM, Normal Inspection - Respiratory Exam Respiratory Exam: Clear to Ausculation Bilateral, NORMAL BREATHING PATTERN - Cardiovascular Exam Cardiovascular Exam: REGULAR RHYTHM, +S1, +S2 - GI/Abdominal Exam GI & Abdominal Exam: Soft, Tenderness (over left lower abdomen superficial wounds), Normal Bowel Sounds. absent: Distended (obese), Firm, Guarding, Rigid - Exam Exam: Scrotal Swelling (tenderness) - Extremities Exam Extremities Exam: Tenderness (B/L medial thigh wounds). absent: Normal Inspection - Neurological Exam Neurological Exam: Alert, Awake, CN II-XII Intact, Oriented x3 - Psychiatric Exam Psychiatric exam: Normal Affect, Normal Mood - Skin Skin Exam: Dry, Warm. absent: Intact, Normal Color Additional comments: 2 3x3 necrotic regions on right foot, right 1st digit. and on two digits of left foot with dressings in place- C/D/I 1 5x5 region surrounded by raw wounds in right medial knee region- optifoam in place, scant strike trough 2 necrotic regions on left lower extremity 1 necrotic region on left medial chest - dressing in place -C/D/I raw bloody wounds on penis, scrotum, bilateral inner thighs, suprapubic region, and lower abdomen- dressings in place with scant sanguinous strike through- dried, in place Assessment and Plan - Assessment and Plan (Free Text) Assessment: 66M w/hx ETOH abuse/cirrhosis w/multiple superficial wounds on chest, groin, LE Plan: Wound care as per wound care nurse Santyl & 4x4 to sacral area Xeroform w/4x4 to groin Monitor wounds Will DW attending Anisha, PGY-1
[2017-01-29 07:15] LABS: HEMATOCRIT 37.6 % (42.0-52.0); MEAN CELL VOLUME 99.7 fl (80.0-105.0); MEAN CORPUSCULAR HEMOGLOBIN 32.9 pg (25.0-35.0); MEAN PLATELET VOLUME 11.5 fl (7.0-11.0); WHITE BLOOD COUNT 7.9 10^3/ul (4.5-11.0)
[2017-01-29 07:30] LABS: ALB/GLOB RATIO 0.8 (1.1-1.8); BILIRUBIN,TOTAL 2.7 mg/dL (0.2-1.3); CALCIUM 7.7 mg/dL (8.4-10.5); POTASSIUM 3.1 mmol/L (3.6-5.0); TOTAL PROTEIN 5.3 g/dL (5.8-8.3)
[2017-01-29] MEDS: Collagenase 250 Units/gm Ointment(30 gm) TOP SCH (09:56)
--- NOTE | 2017-01-29 14:42 | PN ---
DATE: 01/29/2017 SUBJECTIVE: The patient is in bed, in no acute distress, nontoxic and doing better. PHYSICAL EXAMINATION VITAL SIGNS: Temperature is 98, blood pressure is 100/70, respiratory of 18, and heart rate of 90. HEENT: Unremarkable. NECK: Supple. LUNGS: Decreased breath sounds. HEART: Normal S1 and S2. ABDOMEN: Soft and nontender. EXTREMITIES: Examination of leg is almost removed. LABORATORY DATA: Examination reveals a white count of 7.9 and hemoglobin of 12. Chemistries reveals the BUN of 147, and creatinine of 3.1. LFTs are improving. Troponin 0.25. Urinalysis is noted and alcohol level is noted. The patient's HIV is negative. Hepatitis profile is negative. RPR is negative. Blood cultures are no growth in the 24 hours. Urine cultures are Gram-negative raymond. Identification sensitivity is pending. Review of orders revealed the patient to be on p.o. Flagyl, IV Zosyn. The patient had a CAT scan of the abdomen and pelvis consistent with cirrhosis, splenic varices. Dr. Lancaster's note is reviewed. The patient had abdominal ultrasound this morning and results are pending. ASSESSMENT AND PLAN: This is a 66-year-old white male with a history of alcohol abuse and portal hypertension, splenic varices, cirrhosis, kidney stones with hypertension who was found unresponsive at home, had a right leg cellulitis, which is improving, acute kidney injury, [id number] myocardial infarction, and rhabdomyolysis. We will discontinue Zosyn. The patient has a Gram-negative raymond in the urine, but 0-5 wbc's in the urinalysis with the negative CAT scan of the abdomen. No chest x-rays are available. We will use ceftriaxone, pending identification and sensitive to Gram-negative raymond, and a chest x-ray. We will follow with you. Nithin Cruz MD
[2017-01-29] MEDS: Morphine 4 mg/ml ISec IVP PRN (21:21)
--- NOTE | 2017-01-30 07:05 | OP ---
PROCEDURE DATE: 01/29/2017 Fabrice Finch was seen on the floor, has multiple abrasions, scratches and small decubitus on the anterior part of his abdomen, the posterior part is benign. He said he was caught in the rug for 4 days. The wounds are multiple, described by the resident. We will treat with Santyl and non-stick. Most of these should resolve without issue, but will lose tissue along the left toes, left pectoral area and probably the right knee. The groins are inflamed and being treated with non-stick. We will follow. Rafael Díaz MD
[2017-01-30 08:19] LABS: BASO # 0.03 K/mm3 (0.0-2.0); BASO % 0.4 % (0.0-3.0); EOS # 0.4 (0.0-0.7); EOS % 4.7 % (1.5-5.0); GRAN # 5.88 (1.4-6.5); GRAN % 70.9 % (50.0-68.0); HEMATOCRIT 39.7 % (42.0-52.0); LYMPH % 11.7 % (22.0-35.0); MEAN CELL VOLUME 101.5 fl (80.0-105.0); MEAN CORPUSCULAR HEMOGLOBIN 33.5 pg (25.0-35.0); MEAN PLATELET VOLUME 12.3 fl (7.0-11.0); MONO % 12.3 % (1.0-6.0); RED CELL DISTRIBUTION WIDTH 16.4 % (11.5-14.5); WHITE BLOOD COUNT 8.3 10^3/ul (4.5-11.0)
--- NOTE | 2017-01-30 08:57 | CP.PCM.PN ---
Subjective - Date & Time of Evaluation Date of Evaluation: 01/30/17 Time of Evaluation: 08:54 - Subjective Subjective: General Surgery Pt S&E, NAEO. No complaints other than pain at abrasion sites in groin area. Objective - Vital Signs/Intake and Output Vital Signs (last 24 hours): Temp Pulse Resp BP Pulse Ox 97.8 F 68 18 109/56 L 98 01/30/17 07:30 01/30/17 07:30 01/30/17 07:30 01/30/17 07:30 01/30/17 07:30 Intake and Output: 01/30/17 01/30/17 06:59 18:59 Intake Total 900 Output Total 800 Balance 100 - Medications Medications: Current Medications Collagenase (Santyl) 1 gm TOP DAILY [facility] Last Admin: 01/29/17 09:56 Dose: 1 applic Dextrose (Dextrose 5% In Water 1000 Ml) 1,000 mls @ 100 mls/hr IV .Q10H [facility] Last Admin: 01/29/17 02:18 Dose: 100 mls/hr Ceftriaxone Sodium (Rocephin 1 Gram Ivpb) 1 gm in 100 mls @ 100 mls/hr IVPB DAILY [facility] PRN Reason: Protocol Stop: 02/08/17 10:01 Metronidazole (Flagyl) 500 mg PO Q8 [facility] PRN Reason: Protocol Last Admin: 01/30/17 07:44 Dose: 500 mg Morphine Sulfate (Morphine) 4 mg IVP Q4H PRN PRN Reason: Pain, severe (8-10) Last Admin: 01/29/17 21:21 Dose: 4 mg - Labs Labs: 01/30/17 07:30 01/29/17 07:07 - Constitutional Appears: Non-toxic, No Acute Distress - Head Exam Head Exam: NORMOCEPHALIC. absent: ATRAUMATIC (healing abrasion to L forehead) - Eye Exam Eye Exam: EOMI. absent: Scleral icterus - ENT Exam ENT Exam: Mucous Membranes Moist Additional comments: trachea midline - Respiratory Exam Respiratory Exam: NORMAL BREATHING PATTERN. absent: Respiratory Distress - GI/Abdominal Exam GI & Abdominal Exam: Soft, Tenderness (near fold in pannus). absent: Distended , Firm, Guarding, Rigid, Rebound - Neurological Exam Neurological Exam: Alert, Awake - Skin Skin Exam: Dry, Warm Additional comments: 2 3x3 necrotic regions on right foot, right 1st digit. and on two digits of left foot 1 5x5 region surrounded by raw wounds in right medial knee region 2 necrotic regions on left lower extremity 1 necrotic region on left medial chest raw wounds on penis, scrotum, bilateral inner thighs, suprapubic region, and lower abdomen Dressings in place, soiled dressings changed Assessment and Plan - Assessment and Plan (Free Text) Assessment: 66M with Hx of alcohol liver cirrhosis presents with multiple wounds on chest, groin, and lower extremities. Plan: Santyl on R knee and chest with 4x4s and optifoam Alginate and kerlex with optifoam on other wounds, change if there is strikethrough or soilage Monitor wounds, wound care on board D/W Dr. Arjun Herrmann PGY4
[2017-01-30 09:07] LABS: ALB/GLOB RATIO 0.9 (1.1-1.8); BILIRUBIN,TOTAL 2.7 mg/dL (0.2-1.3); CALCIUM 8.6 mg/dL (8.4-10.5); POTASSIUM 3.1 mmol/L (3.6-5.0); TOTAL PROTEIN 5.7 g/dL (5.8-8.3)
[2017-01-30] MEDS: cefTRIAXone 1 gm 1 GM/100 ML BAG IVPB SCH (10:44)
[2017-01-30] MEDS: Collagenase 250 Units/gm Ointment(30 gm) TOP SCH (10:44)
--- NOTE | 2017-01-30 14:50 | PN ---
DATE: 01/30/2017 SUBJECTIVE: The patient is seen earlier this morning. He is unchanged. He is chronically ill and weak. No fevers. PHYSICAL EXAMINATION: VITAL SIGNS: Temperature is 97, blood pressure is 105/60, respiratory rate of 18, and heart rate of . HEENT: Unremarkable. NECK: Supple. LUNGS: Decreased breath sounds. HEART: Normal S1 and S2. ABDOMEN: Soft. LABORATORY DATA: Reveals a white count of 8.3, hemoglobin of 13, and platelets of 43. Chemistry is noted. BUN of 115 and creatinine of 1.7. LFTs are noted and urinalysis is noted. The patient's HIV is negative. Hepatitis profile is negative. Microbiology reveals a urine with a Gram-negative raymond. Blood cultures are no growth and operative note is reviewed. Multiple abrasions, scratches, and small decubitus on the anterior part of his abdomen. ASSESSMENT AND PLAN: This is a 66-year-old white male with a history of alcohol abuse, portal hypertension, splenic varices, cirrhosis, kidney stones, and hypertension who was found unresponsive at home with a right leg cellulitis, which is greatly improved, acute kidney injury is resolving, [id number] myocardial infarction, and rhabdomyolysis. There is a Gram-negative raymond in the urine. Urinalysis; 0-5 WBCs. CAT scan of the abdomen is negative and currently on ceftriaxone. We will slightly discontinued the antibiotics within next 24 hours. We will follow with you. Nithin Cruz MD
--- NOTE | 2017-01-30 17:56 | US ---
PROCEDURE: Portal vein duplex ultrasound. CLINICAL HISTORY: Cirrhosis. Deteriorating liver function. Evaluate for portal vein thrombosis. PHYSICIAN(S): Esteban Glez M.D. FINDINGS: The exam is extremely limited due to in mobility and gas. The portal vein and hepatic artery are not well visualized. No obvious ascites is present. IMPRESSION: 1. Nondiagnostic study due to immobility and bowel gas. .
--- NOTE | 2017-01-30 19:09 | PN ---
DATE: SUBJECTIVE: The patient is 66 years old, seen and examined, lying in bed. Does not have any complaints. Eating and tolerating. No nausea or vomiting. No diarrhea. No fever. No chills. PHYSICAL EXAMINATION: VITAL SIGNS: He is afebrile, pulse 68, respirations 18, and blood pressure 109/56. LUNGS: Bilateral fair airflow. No rhonchi or crackles. HEART: S1 and S2 audible. ABDOMEN: Soft, nontender. No rebound. No guarding. NEUROLOGICAL: The patient is awake and alert, communicative. EXTREMITIES: Bilateral leg edema. He has multiple necrotic wounds on his both feet. LABORATORY DATA: WBC is 8.3, hemoglobin 39.7, and platelet of 53. Chemistry sodium 149, potassium 3.1, chloride 112, CO2 25, BUN 15, and creatinine 1.7. Blood sugar of 105. Total bilirubin 2.7, AST 70, and ALT 65. ASSESSMENT: 1. Acute renal failure improving. 2. Hypokalemia. 3. Status post fall, improving. 4. Rhabdomyolysis. 5. Portal hypertension. 6. Cirrhosis of liver. 7. Status post fall with multiple necrotic ulcer on both feet. 8. Deconditioning. PLAN: He currently is getting IV fluids. He is on Flagyl. He is getting local wound care. We will supplement his potassium and follow up his electrolyte in the a.m. Lizette Andersen MD
--- NOTE | 2017-01-31 03:56 | PN ---
DATE: 01/30/2017 SUBJECTIVE: This patient was seen and evaluated earlier today. The patent is comfortable and tolerating the diet. PHYSICAL EXAMINATION: VITAL SIGNS: He is afebrile, blood pressure 105/60, and respirations are 18. HEENT: Atraumatic and anicteric. NECK: Supple. HEART: S1 and S2 heard. LUNGS: Bilateral air entry present and multiple necrotic wounds were seen in the feet and also in the chest area. LABORATORY DATA: Hemoglobin 13.1, hematocrit 39.7, WBC 8.3, and platelets 43. BUN 115 and creatinine 1.7. Potassium 3.1. IMPRESSION: This is a 66-year-old patient: 1. The patient has chronic liver disease, probably cirrhosis of the liver. 2. History of necrotic ulcers in the feet and chest area. 3. Acute kidney injury on the top of . 4. Thrombocytopenia. 5. Portal hypertension. RECOMMENDATIONS: Close followup of the hemoglobin and hematocrit. The patient is presently on Actigall. Continue antibiotics as per ID. We would request for ultrasound scan of the abdomen very limited study. Thank you very much for allowing me to participate in the care of the patient. Shaniqua Escalera MD
[2017-01-31 07:14] LABS: BASO # 0.01 K/mm3 (0.0-2.0); BASO % 0.1 % (0.0-3.0); EOS # 0.3 (0.0-0.7); EOS % 2.9 % (1.5-5.0); GRAN # 7.31 (1.4-6.5); GRAN % 74.6 % (50.0-68.0); HEMATOCRIT 36.1 % (42.0-52.0); LYMPH % 10.6 % (22.0-35.0); MEAN CELL VOLUME 99.2 fl (80.0-105.0); MEAN CORPUSCULAR HEMOGLOBIN 32.7 pg (25.0-35.0); MEAN PLATELET VOLUME 12.2 fl (7.0-11.0); MONO # 1.2 (0.1-0.6); MONO % 11.8 % (1.0-6.0); RED CELL DISTRIBUTION WIDTH 16.3 % (11.5-14.5); WHITE BLOOD COUNT 9.8 10^3/ul (4.5-11.0)
[2017-01-31 07:16] LABS: ALB/GLOB RATIO 0.8 (1.1-1.8); ALKALINE PHOSPHATASE 85 U/L (38-126); ALT/SGPT 54 U/L (7-56); AST/SGOT 61 U/L (17-59); BILIRUBIN,TOTAL 2.1 mg/dL (0.2-1.3); BLOOD UREA NITROGEN 72 mg/dL (7-21); CARBON DIOXIDE 27 mmol/L (21-33); CHLORIDE 106 mmol/L (98-107); GFR AFRICAN-AMERICAN > 60; GLUCOSE,RANDOM 134 mg/dL (70-110); POTASSIUM 3.2 mmol/L (3.6-5.0); SODIUM 140 mmol/L (132-148); TOTAL PROTEIN 5.1 g/dL (5.8-8.3)
[2017-01-31 07:26] VITALS: RESP 16
--- NOTE | 2017-01-31 07:28 | PN ---
SUBJECTIVE: The patient has no complaints of any chest pain or shortness of breath. No headaches. PHYSICAL EXAMINATION VITAL SIGNS: Temperature is 98.3, pulse is 79, blood pressure 107/62, respirations 18. GENERAL: The patient is lying in bed, flat, comfortable. HEENT: No oral lesion. Anicteric sclerae. Moist mucosa. NECK: No JVD, adenopathy, or thyromegaly. CARDIOVASCULAR: S1 and S2, regular. No murmurs, rubs, or gallops. LUNGS: Clear to auscultation bilaterally. No wheeze, rales, or rhonchi. ABDOMEN: Bowel sounds are positive, soft, nontender and nondistended. EXTREMITIES: No cyanosis, clubbing or edema. LABORATORY DATA: Labs have been reviewed. Ultrasound of the abdomen done shows a non-diagnostic study due to immobility and bowel gas. ASSESSMENT 1. Hyponatremia, 94. 2. Multiple chronic lesions on the skin with chronic wounds. 3. Anemia, multifactorial. 4. Cirrhosis. 5, Thrombocytopenia. 6. Alcoholism. 7. Acute kidney injury. 8. Urinary tract infection secondary to gram-negative rods. 9. Waller catheter secondary to multiple wounds. 10. Chronic diarrhea. PLAN: The patient is probably comfortable. He is being followed by Dr. Cruz from ID and Dr. Díaz from wound care/surgery. The patient had hypokalemia and the potassium was replaced. The patient has multiple necrotic wounds in the right foot, right knee, chest, and groin area at different stages. The patient is getting local wound care. The patient had a urine that was positive for gram-negative rods. Blood cultures negative. The patient is on morphine for pain. He is on a heart-healthy diet. He is most likely going to need subacute rehab. The patient continues to have diarrhea. The patient was placed on scabies precautions and treated. He has a Waller catheter. Addendum: Hepatic mass present. Pt to f/u with PMD and with GI. Spoke to Dr Escalera. Pt is not strong enough to undergo further evaluation and treatment for the mass. He will need close follow up. He was advised to f/u. He has hx of noncompliance. GI aware of the need to f/u. Pt is fraile. Link Jon MD RICHARDSON
[2017-01-31] MEDS ORDERED: Potassium Chloride 20 mEq ER Tab PO ONE ×2 (08:09→15:00)
--- NOTE | 2017-01-31 08:56 | CP.PCM.PN ---
Subjective - Date & Time of Evaluation Date of Evaluation: 01/31/17 Time of Evaluation: 08:52 - Subjective Subjective: General Surgery Progress note for Dr. Díaz PT S&E at bedside. MARIEL. Patient has pain in groin region. No other complaints Objective - Vital Signs/Intake and Output Vital Signs (last 24 hours): Temp Pulse Resp BP Pulse Ox 98.5 F 74 16 104/52 L 98 01/31/17 07:25 01/31/17 07:25 01/31/17 07:25 01/31/17 07:25 01/31/17 07:25 Intake and Output: 01/31/17 01/31/17 06:59 18:59 Intake Total 1150 Output Total 800 Balance 350 - Medications Medications: Current Medications Collagenase (Santyl) 1 gm TOP DAILY [facility] Last Admin: 01/30/17 10:44 Dose: 1 applic Ceftriaxone Sodium (Rocephin 1 Gram Ivpb) 1 gm in 100 mls @ 100 mls/hr IVPB DAILY [facility] PRN Reason: Protocol Stop: 02/08/17 10:01 Last Admin: 01/30/17 10:44 Dose: 100 mls/hr Metronidazole (Flagyl) 500 mg PO Q8 [facility] PRN Reason: Protocol Last Admin: 01/31/17 06:31 Dose: 500 mg Morphine Sulfate (Morphine) 4 mg IVP Q4H PRN PRN Reason: Pain, severe (8-10) Last Admin: 01/29/17 21:21 Dose: 4 mg Ondansetron HCl (Zofran Inj) 4 mg IVP Q6H PRN PRN Reason: Nausea/Vomiting Last Admin: 01/31/17 08:50 Dose: 4 mg Potassium Chloride (K-Dur 20 Meq Er Tab) 40 meq PO ONCE ONE Stop: 01/31/17 15:01 - Labs Labs: 01/31/17 06:45 01/31/17 06:45 - Constitutional Appears: Non-toxic - Head Exam Head Exam: NORMAL INSPECTION - Eye Exam Eye Exam: EOMI, Normal appearance - ENT Exam ENT Exam: Mucous Membranes Moist - Neck Exam Neck Exam: Full ROM, Normal Inspection - Respiratory Exam Respiratory Exam: Clear to Ausculation Bilateral, NORMAL BREATHING PATTERN. absent: Accessory Muscle Use, Respiratory Distress - Cardiovascular Exam Cardiovascular Exam: REGULAR RHYTHM, +S1, +S2. absent: Bradycardia, Tachycardia - GI/Abdominal Exam GI & Abdominal Exam: Soft, Normal Bowel Sounds. absent: Rebound - Extremities Exam Extremities Exam: Full ROM, Normal Inspection. absent: Pedal Edema - Neurological Exam Neurological Exam: Alert, Awake, Oriented x3 - Psychiatric Exam Psychiatric exam: Normal Affect, Normal Mood - Skin Skin Exam: Dry, Normal Color, Warm Assessment and Plan - Assessment and Plan (Free Text) Assessment: 66M with Hx of alcohol liver cirrhosis presents with multiple wounds on chest, groin, and lower extremities. Plan: c/w Santyl on necrotic regions of knees and chest with 4x4s and optifoam Alginate and kerlex with optifoam on other wounds, change if there is strikethrough or drainage. reposition q2h c/w wound care per wound care team c/w abx per ID D/W Dr. Arjun Doss, DO PGY1
[2017-01-31] MEDS: cefTRIAXone 1 gm 1 GM/100 ML BAG IVPB SCH (09:08)
--- NOTE | 2017-01-31 09:14 | PN ---
DATE: 01/29/2017 SUBJECTIVE: The patient is a 66-year-old who was brought to emergency room when neighbor found confused and disoriented. He was lying in his secretions. He was brought to emergency room and the patient was found to have bilateral leg cellulitis, feet was swollen with ulcers. Multiple necrotic lesions on knees and feet. His blood work shows evidence of cirrhosis and alcohol abuse. PHYSICAL EXAMINATION: GENERAL: Today, he looks somewhat confused, answer simple question. VITAL SIGNS: He is afebrile, pulse 77, respirations 18 and blood pressure 101/56. HEART: S1 and S2 audible. LUNGS: Bilateral fair air flow. No rhonchi or crackles. ABDOMEN: Soft, obese and nontender. No rebound. No guarding. EXTREMITIES: Bilateral leg, he has +1 edema. Bilateral leg, he has erythema and wound on his both feet. LABORATORY DATA: WBC 7.9, hemoglobin 12.4, hematocrit 37.6 and platelets 46. Chemistries; sodium 150, potassium 3.1, chloride 113, CO2 of 23, BUN 147, creatinine 3.1 and blood sugar of 110. Urine shows Gram-positive cocci, Gram-negative rods and blood cultures are negative. CT scan shows cirrhosis liver. Abdominal ultrasound is pending. ASSESSMENT: 1. Status post altered mental status. 2. Electrolyte imbalance. 3. Hypokalemia. 4. Hyponatremia. 5. Portal hypertension with cirrhosis liver. 6. Acute renal insufficiency. 7. Bilateral leg cellulitis. 8. Deconditioning. PLAN: The patient is currently on IV fluid. He is getting metronidazole and Rocephin. He is getting local wound care. Followup his electrolytes, CBC and CMP in a.m. Out of bed to chair. Lizette Andersen MD
[2017-01-31] MEDS: Collagenase 250 Units/gm Ointment(30 gm) TOP SCH (09:30)
--- NOTE | 2017-01-31 11:36 | CP.PCM.PN ---
<Krystal Jensen - Last Filed: 01/31/17 11:36> Subjective - Date & Time of Evaluation Date of Evaluation: 01/31/17 Time of Evaluation: 09:00 - Subjective Subjective: GI PROGRESS NOTE FOR DR. MARCUS Patient seen and examined at bedside. Pt resting comfortably in bed. He reports having a bowel movement. He is tolerating his heart healthy diet. He is on contact precautions for scabies. Objective - Vital Signs/Intake and Output Vital Signs (last 24 hours): Temp Pulse Resp BP Pulse Ox 98.5 F 74 16 104/52 L 98 01/31/17 07:25 01/31/17 07:25 01/31/17 07:25 01/31/17 07:25 01/31/17 07:25 Intake and Output: 01/31/17 01/31/17 06:59 18:59 Intake Total 1150 Output Total 800 Balance 350 - Medications Medications: Current Medications Collagenase (Santyl) 1 gm TOP DAILY [facility] Last Admin: 01/30/17 10:44 Dose: 1 applic Ceftriaxone Sodium (Rocephin 1 Gram Ivpb) 1 gm in 100 mls @ 100 mls/hr IVPB DAILY [facility] PRN Reason: Protocol Stop: 02/08/17 10:01 Last Admin: 01/31/17 09:08 Dose: 100 mls/hr Metronidazole (Flagyl) 500 mg PO Q8 [facility] PRN Reason: Protocol Last Admin: 01/31/17 06:31 Dose: 500 mg Morphine Sulfate (Morphine) 4 mg IVP Q4H PRN PRN Reason: Pain, severe (8-10) Last Admin: 01/29/17 21:21 Dose: 4 mg Ondansetron HCl (Zofran Inj) 4 mg IVP Q6H PRN PRN Reason: Nausea/Vomiting Last Admin: 01/31/17 08:50 Dose: 4 mg Potassium Chloride (K-Dur 20 Meq Er Tab) 40 meq PO ONCE ONE Stop: 01/31/17 15:01 - Labs Labs: 01/31/17 06:45 01/31/17 06:45 - Constitutional Appears: Non-toxic, No Acute Distress - Head Exam Head Exam: ATRAUMATIC, NORMAL INSPECTION - Respiratory Exam Respiratory Exam: NORMAL BREATHING PATTERN. absent: Respiratory Distress - Cardiovascular Exam Cardiovascular Exam: +S1, +S2 - GI/Abdominal Exam GI & Abdominal Exam: Soft. absent: Tenderness - Neurological Exam Neurological Exam: Alert, Awake - Psychiatric Exam Psychiatric exam: Normal Affect, Normal Mood Assessment and Plan - Assessment and Plan (Free Text) Assessment: 66yo M with chronic liver disease, possibly cirrhosis, necrotic ulcers of feet and chest, CHARIS, thrombocytopenia, portal hypertension - Continue antibiotics per ID - Will repeat abdominal US to rule out hepatoma. Previous scan was nondiagnostic - AFP ordered - Hepatitis panel negative - Discussed plan with Dr. Lali Jensen PGY-3 <Shaniqua Marcus V - Last Filed: 01/31/17 21:00> Objective - Vital Signs/Intake and Output Vital Signs (last 24 hours): Temp Pulse Resp BP Pulse Ox 98 F 76 16 110/60 97 01/31/17 16:00 01/31/17 16:00 01/31/17 16:00 01/31/17 16:00 01/31/17 16:00 Intake and Output: 01/31/17 02/01/17 18:59 06:59 Intake Total 640 Output Total 1200 Balance -560 - Labs Labs: 01/31/17 06:45 01/31/17 06:45 Attending/Attestation - Attestation I have personally seen and examined this patient.: Yes I have fully participated in the care of the patient.: Yes I have reviewed all pertinent clinical information, including history, physical exam and plan: Yes Notes (Text): this patient was seen and evaluated along with the resident here earlier today. Patient abdomen softly distended no tenderness History of cirrhosis of the liver etiology unclear probably EtOH related Duplex scan was reviewed Last CT was done without contrast Would benefit from ultrasound scan of the abdomen to evaluate for the gallbladder and also to rule out any focal hepatic lesion Patient is being followed by surgery for multiple skin ulcerations the ultrasound report was reviewed suggested the mass in the right hepatic lesion which was not obvious and the previous CT done without contrast Patient is scheduled to be discharged to [facility] at the time of review of the results of the sonogram. Discussed with Dr. Laurent Plan is to do outpatient MRI of the liver to further evaluate the hepatic lesion. Patient may not be cooperative and lies still in MRI scan at the present time in view of this multiple skin ulcerations the ultrasound scan reportedly be faxed to [facility] for future follow-up scans 01/31/17 20:54
--- NOTE | 2017-01-31 12:15 | CARD ---
APPROVED REPORT EKG Measurement Heart [id number] <Conclusion> Sinus tachycardia Otherwise normal ECG
--- NOTE | 2017-01-31 14:54 | US ---
HISTORY: rule out hepatoma COMPARISON: None. TECHNIQUE: Sonographic evaluation of the abdomen. FINDINGS: LIVER: Evidence of cirrhosis with heterogeneous hepatic parenchyma and nodular contour. Suggestion of a 4.1 centimeter mass in the right hepatic lobe. Recanalized umbilical vein. GALLBLADDER: Unremarkable. No gallstones. COMMON BILE DUCT: Measures mm. No stones. No dilatation. PANCREAS: Unremarkable as visualized. No mass. No ductal dilatation. RIGHT KIDNEY: Measures cm. Normal echogenicity. No calculus, mass, or hydronephrosis. LEFT KIDNEY: Measures cm. Normal echogenicity. No calculus, mass, or hydronephrosis. SPLEEN: Normal in size and contour. No mass. AORTA: No aneurysmal dilatation. IVC: Unremarkable. OTHER FINDINGS: None. IMPRESSION: Evidence of cirrhosis with heterogeneous hepatic parenchyma and nodular contour. Suggestion of a 4.1 centimeter mass in the right hepatic lobe. Recanalized umbilical vein.
[2017-01-31 17:58] VITALS: BP 110/60; PULSE 76; TEMP 98; O2SAT 97
== END 2017-01-31 17:57 | DRG 682 ==
LOC: ED 09:41 → ERH 13:08 → 5RSO 15:52 → 5RNO 01-28 04:56
PROVIDERS: ADMIT Internal Medicine Nephrology; ATTEND Internal Medicine Nephrology
DX: N17.9 Acute kidney failure, unspecified (principal); I21.4 Non-ST elevation (NSTEMI) myocardial infarction; E87.0 Hyperosmolality and hypernatremia; E46 Unspecified protein-calorie malnutrition; M62.82 Rhabdomyolysis; K76.6 Portal hypertension; I95.9 Hypotension, unspecified; D69.6 Thrombocytopenia, unspecified; E87.1 Hypo-osmolality and hyponatremia; L03.115 Cellulitis of right lower limb; L03.116 Cellulitis of left lower limb; N39.0 Urinary tract infection, site not specified; W19.XXXA Unspecified fall, initial encounter; L89.899 Pressure ulcer of other site, unspecified stage; E86.0 Dehydration; B86 Scabies; D64.9 Anemia, unspecified; B96.89 Other specified bacterial agents as the cause of diseases classified elsewhere; E87.6 Hypokalemia; I10 Essential (primary) hypertension; I86.8 Varicose veins of other specified sites; K52.9 Noninfective gastroenteritis and colitis, unspecified; N20.0 Calculus of kidney; S30.811A Abrasion of abdominal wall, initial encounter; Y92.009 Unspecified place in unspecified non-institutional (private) residence as the place of occurrence of the external cause; Z87.442 Personal history of urinary calculi; Z87.891 Personal history of nicotine dependence; R40.2412 Glasgow coma scale score 13-15, at arrival to emergency department; L97.529 Non-pressure chronic ulcer of other part of left foot with unspecified severity; L97.519 Non-pressure chronic ulcer of other part of right foot with unspecified severity; L98.9 Disorder of the skin and subcutaneous tissue, unspecified; R21 Rash and other nonspecific skin eruption; R26.81 Unsteadiness on feet; F41.9 Anxiety disorder, unspecified; F32.89 Other specified depressive episodes; R73.9 Hyperglycemia, unspecified; S00.91XA Abrasion of unspecified part of head, initial encounter; R41.0 Disorientation, unspecified; Z87.898 Personal history of other specified conditions; R53.81 Other malaise; K70.30 Alcoholic cirrhosis of liver without ascites

== ENCOUNTER 2018-05-06 23:56 | Emergency (ER) | payer MEDICARE, MEDICAID ==
[2018-05-07 00:10] VITALS: BMI 31.9
[2018-05-07] MEDS ORDERED: TDAP Vaccine 0.5 mL Syr IM ONE (00:22)
--- NOTE | 2018-05-07 00:27 | ED PDOC ---
Arrival/HPI - General Chief Complaint: Trauma Time Seen by Provider: 05/07/18 00:07 Historian: Patient, EMS - History of Present Illness Narrative History of Present Illness (Text): 05/07/18 00z;02 67 year old male, whose past medical history includes alcohol abuse, presents to the emergency department by EMS s/p fall. Patient fall hitting his head and injuring his right hand. Patient admits to drinking tonight. He denies any fight. Patient denies any other complaints other than right hand pain. Patient is unsure of last Tetanus shot. Patient denies any fever, chill, chest pain, shortness of breath, abdominal pain, nausea, vomiting, diarrhea, urinary symptoms, back pain, neck pain, dizziness, or any other complaints. Time/Duration: Prior to Arrival Symptom Onset: Sudden Symptom Course: Unchanged Activities at Onset: Light Past Medical History - Provider Review Nursing Documentation Reviewed: Yes - Cardiac Hx Hypertension: Yes Hx Peripheral Edema: Yes (+3 pitting edema) - Renal Hx Kidney Stones: Yes - Hematological/Oncological Hx Cirrhosis: Yes - Integumentary Other/Comment: multiple purple skin discolorations r arm,ble discolored, left rastafari abrasion,necrotic uneven wound mid alfa surrounded by red skin, abd severely red and excoriated, ulcerated, greenish slough over excoriated skin across abd, red rash red excoriated skin across abd, to b/l groin and upper thighs, sacrum and buttock ulcerated and bright red, necrotic 6 cm x 4cm necrotic wound right knee, red wound 2cm x 2cm right knee, necrotic wounds to both feet, 2.5cm x 1cm necrotic wound top of ft between 1st and 2nd toe, necrotic wound 3cm x 2.5cm yellow slough necrosis and deep red color uneven below breat toe, left foot 1.5cm x 1cm necrotic wound top of ft at 3rd toe and necrotic wound top of ft at 2nd toe 1cm x 1cm, multiple areas of red raw excoriated skin over body and multiple, red raised rash over multiple body sites - Musculoskeletal/Rheumatological Hx Falls: Yes (found on floor) Hx Unsteady Gait: Yes (cane) - Genitourinary/Gynecological Hx Genitourinary Disorders: Yes (frequency) - Psychiatric Hx Anxiety: Yes Hx Depression: Yes Hx Substance Use: No - Past Surgical History Past Surgical History: No Previous - Anesthesia Hx Anesthesia: No Hx Anesthesia Reactions: No Hx Malignant Hyperthermia: No Family/Social History - Physician Review Nursing Documentation Reviewed: Yes Family/Social History: No Known Family HX Smoking Status: Former Smoker Hx Alcohol Use: Yes (quit drinking was alcoholic) Hx Substance Use: No Allergies/Home Meds Allergies/Adverse Reactions: Allergies No Known Allergies Allergy (Verified 01/27/17 10:42) Home Medications: Home Meds Medication Instructions Recorded Confirmed Clobetasol 0.05% [Temovate 0.05%] 60 gm TOP BID 01/27/17 01/27/17 Clonazepam 0.5 mg PO BID 01/27/17 01/27/17 Metoprolol Tartrate 25 mg PO BID 01/27/17 01/27/17 Sertraline [Zoloft] 50 mg PO BID 01/27/17 01/27/17 Spironolactone [Aldactone] 25 mg PO BID 01/27/17 01/27/17 Ursodiol 500 mg PO DAILY 01/27/17 01/27/17 Zolpidem [Ambien] 10 mg PO HS 01/27/17 01/27/17 Review of Systems - Physician Review All systems were reviewed & negative as marked: Yes - Review of Systems Constitutional: absent: Fatigue, Weight Change Eyes: absent: Vision Changes, Photophobia, Eye Pain ENT: absent: Hearing Changes, Tinnitus, TMJ Pain Respiratory: absent: SOB, Cough, Sputum Cardiovascular: absent: Chest Pain, Palpitations, Edema Gastrointestinal: absent: Abdominal Pain, Stool Changes, Constipation, Nausea, Vomiting Genitourinary Male: absent: Dysuria, Frequency, Hematuria Musculoskeletal: absent: Arthralgias, Back Pain Skin: absent: Rash, Pruritis Neurological: absent: Headache, Dizziness Endocrine: absent: Diaphoresis, Polyuria Hemo/Lymphatic: absent: Adenopathy, Easy Bleeding Psychiatric: absent: Anxiety, Depression Physical Exam Vital Signs Reviewed: Yes Temperature: Afebrile Blood Pressure: Hypertensive Pulse: Regular Respiratory Rate: Normal Appearance: Positive for: Well-Appearing, Other (intoxicated) Pain Distress: Mild Mental Status: Positive for: Alert and Oriented X 3 - Systems Exam Head: Present: Tenderness, Contusion (above L eyebrow, no crepitus noted, mild ), Abrasion Pupils: Present: PERRL Extroacular Muscles: Present: EOMI Conjunctiva: Present: Normal Ears: Present: Normal, NORMAL TM Mouth: Present: Moist Mucous Membranes Pharnyx: Present: Normal. No: ERYTHEMA, Uvular Deviation Nose (External): Present: Atraumatic Nose (Internal): Present: Normal Inspection. No: Septal Hematoma Neck: Present: Normal Range of Motion. No: Meningeal Signs Respiratory/Chest: Present: Clear to Auscultation, Good Air Exchange. No: Respiratory Distress Cardiovascular: Present: Regular Rate and Rhythm, Normal S1, S2. No: Murmurs Abdomen: Present: Normal Bowel Sounds. No: Tenderness, Distention, Peritoneal Signs Back: Present: Normal Inspection. No: CVA Tenderness, Midline Tenderness, Paraspinal Tenderness Upper Extremity: Present: NORMAL PULSES, Tenderness (TTP to R dorsal lac site. No snuffbox tenderness. No UCL weakness. No shoulder or elbow pain or deformities noted), Swelling (soft tissue swelling / hematoma noted to R middle knuckle), Neurovascularly Intact, Capillary Refill < 2s, Other (no tense compartments noted ) Lower Extremity: Present: Normal Inspection, NORMAL PULSES, Normal ROM, Neurovascularly Intact, Capillary Refill < 2 s. No: Edema, CALF TENDERNESS, Tenderness, Swelling Neurological: Present: GCS=15, CN II-XII Intact, Speech Normal Skin: Present: Warm, Dry Psychiatric: Present: Alert, Oriented x 3, Intoxicated Medical Decision Making ED Course and Treatment: 05/07/18 00:02 67 yr old M w/ hx of etoh abuse p/w etoh intoxication and fall. No N/V compromise distally. Good radial pulse. pending imaging and labs. No SI or HI or depression. No other complaints besides R hand pain. No snuff box tenderness or UCL weakness. No vision changes. LAC to RUE explored- no visible bone noted. 05/07/18 03:32 Xray of R hand unremarkable Xray chest unremarkable- no acute fx noted, likely old fx to Right lower ribs. CT head, C spine and CT abd pelvis uremarakble. EXAM: CT Head without Intravenous Contrast Electronically signed on May 07, 2018 1:30:13 AM EST by: Antwon Winchester M.D., IMPRESSION: 1. There is generalized parenchymal atrophy noted as demonstrated by symmetrical dilatation of ventricles and sulci. 2. Chronic periventricular and subcortical microvascular disease is seen. 3. No acute intracranial pathology. EXAM: CT Abdomen without IV contrast Electronically signed on May 07, 2018 1:40:14 AM EST by: Antwon Winchester M.D., IMPRESSION: 1. The liver is shrunken and markedly lobulated consistent with advanced cirrhosis. No evidence of hepatic mass. 2. Recanalized paraumbiical veints and large [place] if upper abdominal varies noted. EXAM: CT CERVICAL SPINE W?O CONTRAST Electronically signed on May 07, 2018 1:35:52 AM EST by: Antwon Winchester M.D., IMPRESSION: 1. No fracture or spondylolisthesis. 2. Straightening of cervical lordosis is seen, suggesting muscular spasm. 3. Mutilevel spondylosis. labs reviewed, largely unremarkable- except ETOH level- 370 Clears at 11:30 Will order ABX for wound lac Lac closed by resident, good hemostasis 05/07/18 05:20 Code hou called given pt seeking to leave ED: Pt redirected and informed non clear for 11am. He notes he will cooperate and will wait till then 05/07/18 07:00 Signed out to oncoming physician pending clearance at 11am - Lab Interpretations I have reviewed the lab results: Yes - RAD Interpretation Radiology Orders: 05/07/18 00:18 CERVICAL SPINE W/O CONTRAST [CT] Stat HEAD W/O CONTRAST [CT] Stat CHEST PORTABLE [RAD] Stat HAND RIGHT 3 VIEWS [RAD] Stat 05/07/18 00:21 ABDOMEN & PELVIS [ABD & PELVIS W/O PO OR IV CONT] [CT] Stat Pouch Maker: Radiologist - EKG Interpretation Interpreted by ED Physician: Yes Type: 12 lead EKG - Medication Orders Current Medication Orders: Discontinued Medications Tetanus/Reduced Diphtheria/Acell Pertussis (Boostrix Vaccine Inj) 0.5 ml IM .ONCE ONE Stop: 05/07/18 00:23 Disposition/Present on Arrival - Present on Arrival Any Indicators Present on Arrival: No History of DVT/PE: No History of Uncontrolled Diabetes: No Urinary Catheter: No History of Decub. Ulcer: No History Surgical Site Infection Following: None - Disposition Have Diagnosis and Disposition been Completed?: Yes Diagnosis: Laceration Disposition Time: 06:55 Patient Problems: Current Active Problems Problem Status Onset Laceration Acute Condition: GOOD Discharge Instructions (ExitCare): Laceration Repair With Stitches (DC), Alcohol Use - When Is Drinking a Problem?, Alcohol Abuse and Alcoholism (DC) Additional Instructions: DECREASE THE AMOUNT OF ALCOHOLIC DRINKS YOU ARE DRINKING. TAKE THE ANTIBIOTICS FOR YOUR HAND WOUND. RETURN in 7 DAYS FOR SUTURE REMOVAL. IF YOU NOTICE ANY REDNESS OR DRAINAGE TO HAND WOUND COME BACK TO THE EMERGENCY DEPARTMENT. STACIE KERNS, thank you for letting us take care of you today. Your provider was Samir Jones and you were treated for ETOH/ HEAD INJURY. The emergency medical care you received today was directed at your acute symptoms. If you were prescribed any medication, please fill it and take as directed. It may take several days for your symptoms to resolve. Return to the Emergency Department if your symptoms worsen, do not improve, or if you have any other problems. Please contact your doctor or call one of the physicians/clinics you have been referred to that are listed on the Patient Visit Information form that is included in your discharge packet. Bring any paperwork you were given at discharge with you along with any medications you are taking to your follow up visit. Our treatment cannot replace ongoing medical care by a primary care provider outside of the emergency department. Thank you for allowing the [facility] team to be part of your care today. If you had an X-Ray or CT scan: A Radiologist will review the ED reading if any change in treatment is needed we will contact you. If you had a blood, urine, or wound culture: It will take several days for the results, if any change in treatment is needed we will contact you. If you had an STI test: It will take 48 hours for the results. Please call after 1 week if you have not heard back. Prescriptions: Cephalexin [Keflex] 250 mg PO Q6H 5 Days #20 capsule Referrals: FAMILY PROVIDER,NO [Primary Care Provider] - Follow up with primary [facility] [Outside] - Follow up with primary [place] [facility] [place] [Outside] - Follow up with primary [employer] [facility] [Outside] - Follow up with primary [facility] at [facility] [place] [Outside] - Follow up with primary Forms: [employer] (Japanese)
[2018-05-07] MEDS ORDERED: Lidocaine 1% Inj (20ml) INFIL STA (01:42)
[2018-05-07] MEDS ORDERED: Lidocaine 1% 5ml Abboject ONE (01:44)
[2018-05-07] MEDS ORDERED: Lidocaine 1% Inj (20ml) ONE (01:48)
[2018-05-07 02:21] LABS: ALB/GLOB RATIO 1.3 (1.1-1.8); ALBUMIN 4.3 g/dL (3.0-4.8); ALT/SGPT 46 U/L (7-56); AST/SGOT 66 U/L (17-59); BASO # 0.09 K/mm3 (0.0-2.0); BASO % 1.8 % (0.0-3.0); BLOOD UREA NITROGEN 7 mg/dL (7-21); EOS # 0.1 (0.0-0.7); GFR NON-AFRICAN AMERICAN > 60; GRAN # 3.82 (1.4-6.5); GRAN % 75.3 % (50.0-68.0); HEMOGLOBIN 12.6 g/dL (14.0-18.0); LYMPH # 0.8 (1.2-3.4); LYMPH % 14.8 % (22.0-35.0); MEAN CELL VOLUME 97.7 fl (80.0-105.0); MEAN CORPUSCULAR HEMOGLOBIN 32.5 pg (25.0-35.0); MEAN CORPUSCULAR HGB CONC 33.2 g/dl (31.0-37.0); MEAN PLATELET VOLUME 9.4 fl (7.0-11.0); MONO # 0.4 (0.1-0.6); MONO % 7.1 % (1.0-6.0); RBC 3.88 10^6/uL (3.5-6.1); RED CELL DISTRIBUTION WIDTH 12.9 % (11.5-14.5); WHITE BLOOD COUNT 5.1 10^3/uL (4.5-11.0)
[2018-05-07 02:56] VITALS: RESP 18
[2018-05-07] MEDS ORDERED: cefTRIAXone (Rocephin) 1 gm Inj IM STA (03:56)
--- NOTE | 2018-05-07 07:15 | ED PDOC ---
Physical Exam - Physical Exam Narrative Physical Exam (Text): 05/07/18 07:14 Gen: NAD, cooperative, well appearing, non-toxic. Head: NCAT. EYES: PERRL, EOMI, conjunctiva clear, EARS: TMs clear MOUTH: moist MM, posterior pharynx without erythema or exudate, uvula midline. CV: (+) S1S2, RRR, no M/G/R LUNGS: CTA B/L, No W/R/R, good air movement Abd: Soft, NTTP, no guarding, rebound or rigidity. Neuro: AAO x 3, GCS 15, CN 2-12 intact, motor and sensory grossly intact, 5/5 muscle strength B/L UE's and LE's. ext: no cyanosis or edema Vital Signs Reviewed: Yes Vital Signs Temp Pulse Resp BP Pulse Ox 05/07/18 02:40 86 18 140/89 99 05/07/18 00:04 98.5 F 93 H 18 184/74 H 99 Temperature: Afebrile Blood Pressure: Hypertensive Pulse: Regular Respiratory Rate: Normal Appearance: Positive for: Well-Appearing, Non-Toxic, Comfortable Pain Distress: None Mental Status: Positive for: Alert and Oriented X 3 Medical Decision Making ED Course and Treatment: 05/07/18 07:14 Case endorsed to me by Dr. Jones, pending sobriety. 05/07/18 10:50 Pt is awake, alert, has steady gait, speech clear and coherent. He denies any complaints and tolerated a breakfast tray. Pt ready for d/c. - Lab Interpretations Lab Results: 05/07/18 01:50 05/07/18 01:50 Lab Results 05/07/18 03:01: Blood Type Confirm O POSITIVE 05/07/18 01:50: Alcohol, Quantitative 371 H* 05/07/18 01:50: Blood Type O POSITIVE, Antibody Screen Negative, BBK History Checked No verified bt 05/07/18 01:50: Sodium 147, Potassium 4.3, Chloride 110 H, Carbon Dioxide 27, Anion Gap 14, BUN 7, Creatinine 0.8, Est GFR ( Amer) > 60, Est GFR (Non- Af Amer) > 60, Random Glucose 115 H, Calcium 9.0, Total Bilirubin 0.6, AST 66 H, ALT 46, Alkaline Phosphatase 110, Total Creatine Kinase 146, Total Protein 7.7, Albumin 4.3, Globulin 3.4, Albumin/Globulin Ratio 1.3 05/07/18 01:50: WBC 5.1, RBC 3.88, Hgb 12.6 L, Hct 37.9 L, MCV 97.7, MCH 32.5, M CHC 33.2, RDW 12.9, Plt Count 124, MPV 9.4, Gran % 75.3 H, Lymph % (Auto) 14.8 L , [place] % (Auto) 7.1 H, Eos % (Auto) 1.0 L, Baso % (Auto) 1.8, Gran # 3.82, Lymph # (Auto) 0.8 L, [place] # (Auto) 0.4, Eos # (Auto) 0.1, Baso # (Auto) 0.09 - RAD Interpretation Radiology Orders: 05/07/18 00:18 CERVICAL SPINE W/O CONTRAST [CT] Stat HEAD W/O CONTRAST [CT] Stat CHEST PORTABLE [RAD] Stat HAND RIGHT 3 VIEWS [RAD] Stat 05/07/18 00:21 ABDOMEN & PELVIS [ABD & PELVIS W/O PO OR IV CONT] [CT] Stat - Medication Orders Current Medication Orders: Discontinued Medications Ceftriaxone Sodium (Rocephin) 1 gm IM STAT STA; Protocol Stop: 05/07/18 03:57 Last Admin: 05/07/18 05:43 Dose: 1 gm IM Administration Charges Document 05/07/18 05:43 (Rec: 05/07/18 05:50 [id number]) Injection Site MAR Injection Site Right Deltoid Charges for Administration # of IM Administrations 1 Lidocaine HCl (Lidocaine 1% (20ml)) 1 ml INFIL STAT STA Stop: 05/07/18 01:43 Last Admin: 05/07/18 02:52 Dose: 1 ml Comments: given to ER resident for suture. Tetanus/Reduced Diphtheria/Acell Pertussis (Boostrix Vaccine Inj) 0.5 ml IM .ONCE ONE Stop: 05/07/18 00:23 Last Admin: 05/07/18 02:49 Dose: 0.5 ml - Scribe Statement The provider has reviewed the documentation as recorded by the Scribles Rivera All medical record entries made by the Scribe were at my direction and personally dictated by me. I have reviewed the chart and agree that the record accurately reflects my personal performance of the history, physical exam, medical decision making, and the department course for this patient. I have also personally directed, reviewed, and agree with the discharge instructions and disposition. Disposition/Present on Arrival - Present on Arrival Any Indicators Present on Arrival: No History of DVT/PE: No History of Uncontrolled Diabetes: No Urinary Catheter: No History of Decub. Ulcer: No History Surgical Site Infection Following: None - Disposition Have Diagnosis and Disposition been Completed?: Yes Diagnosis: Laceration, Alcohol intoxication Disposition: HOME/ ROUTINE Disposition Time: 10:53 Patient Plan: Discharge Patient Problems: Current Active Problems Problem Status Onset Laceration Acute Condition: GOOD Discharge Instructions (ExitCare): Alcohol Use - When Is Drinking a Problem?, Laceration Repair With Stitches (DC), Alcohol Abuse and Alcoholism (DC) Additional Instructions: DECREASE THE AMOUNT OF ALCOHOLIC DRINKS YOU ARE DRINKING. TAKE THE ANTIBIOTICS FOR YOUR HAND WOUND. RETURN in 7 DAYS FOR SUTURE REMOVAL. IF YOU NOTICE ANY REDNESS OR DRAINAGE TO HAND WOUND COME BACK TO THE EMERGENCY DEPARTMENT. STACIE KERNS, thank you for letting us take care of you today. Your provider was Samir Jones and you were treated for ETOH/ HEAD INJURY. The emergency medical care you received today was directed at your acute symptoms. If you were prescribed any medication, please fill it and take as directed. It may take several days for your symptoms to resolve. Return to the Emergency Department if your symptoms worsen, do not improve, or if you have any other problems. Please contact your doctor or call one of the physicians/clinics you have been referred to that are listed on the Patient Visit Information form that is included in your discharge packet. Bring any paperwork you were given at discharge with you along with any medications you are taking to your follow up visit. Our treatment cannot replace ongoing medical care by a primary care provider outside of the emergency department. Thank you for allowing the [facility] team to be part of your care today. If you had an X-Ray or CT scan: A Radiologist will review the ED reading if any change in treatment is needed we will contact you. If you had a blood, urine, or wound culture: It will take several days for the results, if any change in treatment is needed we will contact you. If you had an STI test: It will take 48 hours for the results. Please call after 1 week if you have not heard back. Prescriptions: Cephalexin [Keflex] 250 mg PO Q6H 5 Days #20 capsule Referrals: [facility] [Outside] - Follow up with primary [facility] [place] [Outside] - Follow up with primary [facility] [Outside] - Follow up with primary [facility] at [facility] [place] [Outside] - Follow up with primary FAMILY PROVIDER,NO [Primary Care Provider] - Follow up with primary Forms: [employer] [facility] (Greenlandic)
--- NOTE | 2018-05-07 10:11 | CT ---
Date of service: 05/07/2018 PROCEDURE: CT Cervical Spine without contrast HISTORY: etoh, fall COMPARISON: None available. TECHNIQUE: Axial computed tomography images were obtained of the cervical spine without the use of intravenous contrast. Coronal and sagittal reformatted images were created and reviewed. Radiation dose: Total exam DLP = 644.94 mGy-cm. This CT exam was performed using one or more of the following dose reduction techniques: Automated exposure control, adjustment of the mA and/or kV according to patient size, and/or use of iterative reconstruction technique. FINDINGS: VERTEBRAE: Less than 2 mm retrolisthesis identified C3-4. Similar degree of retrolisthesis is identified at C5-6. DISCS/SPINAL CANAL/NEURAL FORAMINA: No significant central canal or neural foraminal stenosis. Disc degenerative changes primarily disc space narrowing C3-4, C4-5, C5-6, C6-7. PARASPINAL SOFT TISSUES: Unremarkable. OTHER FINDINGS: None. IMPRESSION: Multilevel degenerative change. No acute abnormalities. Concordant results (preliminary interpretation) provided by [employer]. Procedure Completed: 00:35. Preliminary Report: Dictated and Authenticated: 01:35. Final Interpretation: 10:07. May 07, 2018
[2018-05-07 10:35] VITALS: TEMP 98.3
--- NOTE | 2018-05-07 11:37 | RAD ---
PROCEDURE: Right Hand Radiographs. HISTORY: etoh, fall, lac COMPARISON: None. FINDINGS: BONES: Normal. No fracture. JOINTS: Normal. No osteoarthritic changes. SOFT TISSUES: Soft tissue swelling about the dorsal aspect of the hand. No visualized radiopaque foreign body. OTHER FINDINGS: None. IMPRESSION: Soft tissue swelling without acute articular or osseous abnormality.
--- NOTE | 2018-05-07 11:37 | RAD ---
Date of service: 05/07/2018 HISTORY: etoh, fall lac COMPARISON: No prior. FINDINGS: LUNGS: No active pulmonary disease. PLEURA: No significant pleural effusion identified, no pneumothorax apparent. CARDIOVASCULAR: No atherosclerotic calcification present Normal. OSSEOUS STRUCTURES: No significant abnormalities. VISUALIZED UPPER ABDOMEN: Normal. OTHER FINDINGS: None. IMPRESSION: No active disease.
--- NOTE | 2018-05-07 11:49 | CT ---
Date of service: 05/07/2018 PROCEDURE: CT Abdomen and Pelvis without intravenous contrast HISTORY: fall COMPARISON: 01/27/2017. TECHNIQUE: Unenhanced. Neither IV nor oral contrast administered Radiation dose: Total exam DLP = 1052.29 mGy-cm. This CT exam was performed using one or more of the following dose reduction techniques: Automated exposure control, adjustment of the mA and/or kV according to patient size, and/or use of iterative reconstruction technique. FINDINGS: LOWER THORAX: Unremarkable. LIVER: Cirrhotic liver. Markedly enlarged venous varicosities including portal veins and left upper quadrant perisplenic venous structures. Findings consistent with portal hypertension. Additional stigmata of cirrhosis/portal hypertension including periumbilical anterior abdominal wall venous varicosities. GALLBLADDER AND BILE DUCTS: Sludge/gallstones identified in a distended gallbladder PANCREAS: Unremarkable. No gross lesion or ductal dilatation. SPLEEN: Unremarkable. ADRENALS: Unremarkable. No mass. KIDNEYS AND URETERS: Unremarkable. No hydronephrosis. No solid mass. VASCULATURE: No aortic aneurysm.Atherosclerotic calcification and mural plaque present. Findings are seen throughout the aorta BOWEL: Constipation without fecal impaction or obstruction. APPENDIX: Unremarkable. Normal appendix. PERITONEUM: Unremarkable. No free fluid. No free air. LYMPH NODES: Unremarkable. No enlarged lymph nodes. BLADDER: Unremarkable. REPRODUCTIVE: Unremarkable. BONES: No acute fracture. Multilevel degenerative change primarily lower thoracic and upper lumbar spine includes disc degenerative change, vacuum disc phenomenon, marginal and non marginal osteophyte formation. OTHER FINDINGS: Ovoid cystic mass adjacent to the right gluteus juana muscle measuring 1.8 x 5 cm. This is a new finding but likely benign based on appearance and Hounsfield unit measurements. IMPRESSION: No acute findings related to/ accounting for the clinical presentation. Stable findings with respect to the liver and portal venous system. Additional benign and/or incidental findings described above. Concordant results (preliminary interpretation) provided by [employer]. Procedure Completed: 00:41. Preliminary Report: Dictated and Authenticated: 01:40. Final Interpretation: 11:45.
[2018-05-07 12:00] VITALS: BP 134/79; PULSE 78; O2SAT 100
--- NOTE | 2018-05-07 12:18 | CT ---
Date of service: 05/07/2018 PROCEDURE: CT HEAD WITHOUT CONTRAST. HISTORY: etoh, fall, lac COMPARISON: 01/27/2017. TECHNIQUE: Axial computed tomography images were obtained through the head/brain without intravenous contrast. Supplemental Coronal and Sagittal projections created and reviewed. Radiation dose: Total exam DLP = 833.03 mGy-cm. This CT exam was performed using one or more of the following dose reduction techniques: Automated exposure control, adjustment of the mA and/or kV according to patient size, and/or use of iterative reconstruction technique. FINDINGS: HEMORRHAGE: No intracranial hemorrhage. BRAIN: No mass effect or edema. Cortical and cerebellar atrophy, periventricular small vessel disease. VENTRICLES: Unremarkable. No hydrocephalus. CALVARIUM: Unremarkable. PARANASAL SINUSES: Unremarkable as visualized. No significant inflammatory changes. MASTOID AIR CELLS: Unremarkable as visualized. No inflammatory changes. OTHER FINDINGS: None. IMPRESSION: No acute intracranial abnormalities. No significant findings to account for the clinical presentation. No significant interval change compared to the prior examination(s). Concordant results (preliminary interpretation) provided by [employer]. Procedure Completed: 00:34. Preliminary Report: Dictated and Authenticated: 01:30. Final Interpretation: 12:14.
== END 2018-05-07 12:06 | disposition home or self-care (01) ==
LOC: ED 23:56
DX: S61.411A Laceration without foreign body of right hand, initial encounter (principal); W19.XXXA Unspecified fall, initial encounter; I10 Essential (primary) hypertension; R60.9 Edema, unspecified; F10.10 Alcohol abuse, uncomplicated; Z87.891 Personal history of nicotine dependence; Z23 Encounter for immunization
CPT/HCPCS: 12002; 70450; 71045; 72125; 73130; 74176; 80053; 82550; 85025; 86850; 86900; 90471; 90715; 96372; 99285; G0480; J0696